=== PATIENT | female | born 1975 | race Caucasian/White ===

== ENCOUNTER 2017-11-27 16:35 | Inpatient (IN) | payer BC, OTHER ==
[2017-11-27] MEDS ORDERED: NS 0.9% 1000 ML* 1,000 ML IV ONE (17:24)
[2017-11-27 17:33] LABS: ABS Basophils 0.1 10^3/ul (0-0.2); ABS Eosinophils 0.1 10^3/ul (0-0.6); ABS Lymphocytes 2.1 10^3/ul (1.0-4.8); ABS Monocytes 0.9 10^3/ul (0-0.8); ABS Neutrophils 10.9 10^3/ul (1.5-7.7); ABS Nucleated RBC 0 10^3/ul; Eosinophil % 0.5 % (0-6); Hematocrit 30 % (35-47); Hemoglobin 9.8 g/dl (12.0-16.0); Lymphocyte % 15.2 % (25-47); Mean Corpuscular HGB Conc 33 g/dl (31-36); Mean Corpuscular Hemoglobin 26 pg (27-31); Mean Corpuscular Volume 78 fL (80-97); Mean Platelet Volume 8 um3 (7.4-10.4); Nucleated Red Blood Cells % 0.1; Platelet Count 233 10^3/ul (150-450); Red Blood Count 3.85 10^6/ul (4.0-5.4); Red Cell Distribution Width 15 % (10.5-15); White Blood Count 14.1 10^3/ul (3.5-10.8)
[2017-11-27] MEDS ORDERED: Iohexol 350* (CONTRAST) 500 ML MDV IV ONE (18:39)
--- NOTE | 2017-11-27 18:44 | RAD ---
Indication: Dyspnea. 2 views of the chest including dual energy PA views demonstrates no mediastinal shift. Heart is of normal size and configuration. There is poor inspiration noted. No alveolar consolidation is noted. IMPRESSION: No alveolar consolidation is noted. Mild vascular congestion is noted.
--- NOTE | 2017-11-27 20:08 | RAD ---
Indication: Syncope and dyspnea. Contrast: Administered 88.0 ml of OMNIPAQUE 350 mg/ml CTA of the chest was performed after IV contrast administration. Coronal and sagittal reconstructed images were obtained. The pulmonary arterial tree is well opacified. There are no filling defects present to suggest pulmonary embolus. The study is limited due to body habitus. Areas of airspace disease is noted in both lung bases consistent with pneumonia. There is no mediastinal or hilar adenopathy noted. No pleural fluid is identified. The visualized abdominal organs are otherwise unremarkable. There is nonenhancement of the upper pole left kidney. I cannot totally exclude pyelonephritis of the left kidney. IMPRESSION: No pulmonary embolus is noted. Patchy areas of airspace disease in the lung bases bilaterally consistent with bilateral pneumonia. Ill-defined enhancement in the upper pole of left kidney for which pyelonephritis is not excluded.
--- NOTE | 2017-11-27 21:07 | HP ---
H&P (Free Text) History and Physical: PCP: Jean Conroy NP Date/Time: 11/27/2017 4533 CC: SOB HPI: Mrs Wilson is a 42YO super morbidly obese female who was discharged from [facility] 11/27/2017 after a stay for sepsis 2nd an obstructing L ureteral stone s/p stent placement 11/26/2017. A few hours after arriving home she developed progressive SOB and wheeze which is new for her. She reports 'chest soreness' worse with deep inspiration along with a dry cough, but denies overt chest pain, palpitations, LE swelling, N/V, diarrhea, F/C, dysuria, abdominal pain, or other issues. PMedHx urolithiasis TAHMINA on CPAP GERD depression super morbid obesity Ambulatory Orders BuPROPion XL* [Bupropion XL*] 300 mg PO DAILY 11/27/17 Citalopram TAB* [CeleXA TAB*] 20 mg PO DAILY 11/27/17 Norgestimate-Ethinyl Estradiol [Sprintec 28 Day Tablet] 1 tab PO DAILY 11/27/17 Omeprazole CAP* [Prilosec CAP* 20 MG] 20 mg PO DAILY 11/27/17 metFORMIN* [Glucophage 500 MG TAB *] 500 mg PO BID 11/27/17 Allergies Cipro Opthalmic Drops Allergy (Unknown, Uncoded 01/28/16 07:27) Unknown Reaction Details PSurgHx stent L kidney 11/26/2017 lithotripsy lasik eye surgery SocHx: denies tobacco, alcohol, & recreational drugs; lives with her ; works as a commercial real estate manager; full code status FamHx: M: in her 60s w/ COPD & HTN; Father: estranged, "lung issues"; Sister: healthy; Brother: healthy ROS: as above, otherwise reviewed and all were negative vitals: Vital Signs Temp 36.4 C 11/27/17 16:36 Pulse 110 11/27/17 21:00 Resp 31 11/27/17 19:27 BP 119/92 11/27/17 20:17 Pulse Ox 92 11/27/17 21:00 Intake & Output 11/26/17 11/27/17 11/27/17 23:59 11:59 23:59 Weight 167.829 kg Constitutional: NAD, normally developed, super morbidly obese white female HEENM: atraumatic; sclera/conjunctiva: ancteric/clear; hearing: clinically intact; oropharynx: clear, mucosa moist Neck: soft tissue: non-tender; thyroid: normal Pulmonary: diminished bilaterally with scant mid- to end-expiratory wheeze, fair to poor aeration, no accessory muscle use CV: RR/RR, normal S1S2, no carotid bruit, no jugular venous distention, 2+ B DP/ PT, no edema Abdominal: soft, non-distended, non-tender, no rebound/guarding/rigidity, normoactive bowel sounds, no hepatosplenomegaly or masses, no costovertebral angle tenderness Musculoskeletal: general: grossly intact, non-tender to palpation Integumental: normal appearance and texture of exposed skin Psychiatric orientation: AA&O to PPS affect: calm mood: cooperative eye contact: fair to good content: reliable responses: timely insight: good Testing: Lab Results 11/27/17 11/27/17 11/27/17 Range/Units 17:22 17:22 17:22 WBC 14.1 H (3.5-10.8) 10^3/ul RBC 3.85 L (4.0-5.4) 10^6/ul Hgb 9.8 L (12.0-16.0) g/dl Hct 30 L (35-47) % MCV 78 L (80-97) fL MCH 26 L (27-31) pg MCHC 33 (31-36) g/dl RDW 15 (10.5-15) % Plt Count 233 (150-450) 10^3/ul MPV 8 (7.4-10.4) um3 Neut % (Auto) 77.3 (38-83) % Lymph % (Auto) 15.2 L (25-47) % Rains % (Auto) 6.3 (0-7) % Eos % (Auto) 0.5 (0-6) % Baso % (Auto) 0.7 (0-2) % Absolute Neuts (auto) 10.9 H (1.5-7.7) 10^3/ul Absolute Lymphs (auto) 2.1 (1.0-4.8) 10^3/ul Absolute Monos (auto) 0.9 H (0-0.8) 10^3/ul Absolute Eos (auto) 0.1 (0-0.6) 10^3/ul Absolute Basos (auto) 0.1 (0-0.2) 10^3/ul Absolute Nucleated RBC 0 10^3/ul Nucleated RBC % 0.1 D-Dimer, Quantitative 529 H (Less Than 230) ng/mL Sodium 135 (133-145) mmol/L Potassium 3.7 (3.5-5.0) mmol/L Chloride 104 (101-111) mmol/L Carbon Dioxide 25 (22-32) mmol/L Anion Gap 6 (2-11) mmol/L BUN 6 (6-24) mg/dL Creatinine 0.65 (0.51-0.95) mg/dL Est GFR ( Amer) 129.8 (>60) Est GFR (Non-Af Amer) 101.0 (>60) BUN/Creatinine Ratio 9.2 (8-20) Glucose 117 H (70-100) mg/dL Calcium 8.5 L (8.6-10.3) mg/dL Total Bilirubin 0.30 (0.2-1.0) mg/dL AST 9 L (13-39) U/L ALT 10 (7-52) U/L Alkaline Phosphatase 59 (34-104) U/L Troponin I 0.01 (<0.04) ng/mL Total Protein 6.5 (6.4-8.9) g/dL Albumin 3.2 (3.2-5.2) g/dL Globulin 3.3 (2-4) g/dL Albumin/Globulin Ratio 1.0 (1-3) ECG, personally reviewed: sinus tachycardia rate 103, no ischemia CXR, personally reviewed: IMPRESSION: No alveolar consolidation is noted. Mild vascular congestion is noted. CTA chest, personally reviewed: IMPRESSION: No pulmonary embolus is noted. Patchy areas of airspace disease in the lung bases bilaterally consistent with bilateral pneumonia. Ill-defined enhancement in the upper pole of left kidney for which pyelonephritis is not excluded. US venous BLE: IMPRESSION: NO EVIDENCE OF DEEP VENOUS THROMBOSIS OF EITHER LOWER EXTREMITY IS PRESENT. Impression: 42F presenting with SOB found to have BLL pneumonia on CTA; recent L renal stenting for sepsis 2nd obstructing stone 11/26/2017 at [facility] DIAGNOSIS & PLAN Primary sepsis (HR>90, RR>22, WBC>12) 2nd BLL pneumonia : IV ABX : IVFs : blood, sputum, & urine CXs : supplemental oxygen : supportive care SOB w/ wheeze : as above : albuterol nebs Secondary urolithiasis : L renal stenting for sepsis 2nd obstructing stone 11/26/2017 at [facility] : records requested TAHMINA : continue home CPAP GERD : continue omeprazole depression : continue bupropion & citalopram super morbid obesity : suspect obesity hypoventilation syndrome : continue metformin Admission Rational: inpatient for sepsis requiring IV ABX & IVFs DVTp: SCDS Code Status: full HCP:
--- NOTE | 2017-11-27 21:22 | RAD ---
Indication: Bilateral leg edema. Duplex Doppler sonography of the deep venous system of both lower extremities was performed. Bilaterally the common femoral veins, proximal greater saphenous veins, proximal deep femoral veins, femoral veins, popliteal veins, posterior tibial veins and peroneal veins appear patent and compressible. IMPRESSION: NO EVIDENCE OF DEEP VENOUS THROMBOSIS OF EITHER LOWER EXTREMITY IS PRESENT.
--- NOTE | 2017-11-27 22:15 | ED ---
Mariza Ace Gabriel, scribed for Ankur Dixon MD on 11/27/17 at 1705 . Shortness of Breath - HPI Summary HPI Summary: This patient is a 42 year old F presenting to [facility] with a chief complaint of SOB since earlier today. The patient rates the pain 5/10 in severity. Symptoms aggravated by rest slightly. Patient reports CP with breathing,. Patient denies hematuria and LE pain. Pt was discharged from [place] today after being admitted for 2 days. There she was diagnosed with kidney stones and sepsis, a kidney stent was placed. No hx of DVT. - History of Current Complaint Chief Complaint: EDShortnessOfBreath Hx Obtained From: Patient Onset/Duration: Still Present Timing: Constant Current Severity: Mild Dyspnea At: Rest Associated Signs & Symptoms: Chest Pain Unrelated to Cough Related History: Obesity - Allergy/Home Medications Allergies/Adverse Reactions: Allergies Allergy/AdvReac Type Severity Reaction Status Date / Time Cipro Opthalmic Drops Allergy Unknown Unknown Uncoded 01/28/16 07:27 Reaction Details Home Medications: Home Medications BuPROPion XL* [Bupropion XL*] 300 mg PO DAILY 11/27/17 [History Confirmed ] Citalopram TAB* [CeleXA TAB*] 20 mg PO DAILY 11/27/17 [History Confirmed ] Norgestimate-Ethinyl Estradiol [Sprintec 28 Day Tablet] 1 tab PO DAILY 11/27/17 [History Confirmed 11/27/17] Omeprazole CAP* [Prilosec CAP* 20 MG] 20 mg PO DAILY 11/27/17 [History Confirmed 11/27/17] metFORMIN* [Glucophage 500 MG TAB *] 500 mg PO BID 11/27/17 [History Confirmed 11/27/17] PMH/Surg Hx/FS Hx/Imm Hx Endocrine/Hematology History: Reports: Hx Diabetes Respiratory History: Reports: Hx Sleep Apnea GI History: Reports: Hx Gastroesophageal Reflux Disease History: Reports: Hx Kidney Stones Psychiatric History: Reports: Hx Anxiety, Hx Depression - Surgical History Surgery Procedure, Year, and Place: Lithotripsy; Lasik Infectious Disease History: No Infectious Disease History: Denies: Traveled Outside the [place] in Last 30 Days - Family History Known Family History: Positive: Diabetes, Other - cancer, thyroid issues, blood clots - Social History Alcohol Use: Occasionally Substance Use Type: Reports: None Smoking Status (MU): Never Smoked Tobacco Review of Systems Positive: Chest Pain - with breathing Positive: Shortness Of Breath, Cough All Other Systems Reviewed And Are Negative: Yes Physical Exam - Summary Physical Exam Summary: Appearance: pt is morbidly obese and is in acute respiratory distress Skin: Warm, Dry, No rash, pallor Eyes: Normal, PERRL, EOMI, sclera are pallor ENT: Normal Neck: Supple, nontender Respiratory: Clear to auscultation Cardiovascular: S1, S2, no murmur, no rub, no gallop Abdomen: Soft, nontender, no organomegaly Bowel sounds: Present Musculoskeletal: Normal, Strength/ROM Intact, no edema, pulses symmetrical Neurological: Normal, A&Ox3, cranial nerves II-XII WNL, follows commands, gait not tested, sensation intact to pin and light touch Psychiatric: affect normal, behavior appropriate, dressed appropriately, judgment intact Triage Information Reviewed: Yes Vital Signs On Initial Exam: Initial Vitals Temp Pulse Resp BP Pulse Ox 97.6 F 110 24 166/92 99 11/27/17 16:36 11/27/17 16:36 11/27/17 16:36 11/27/17 16:36 11/27/17 16:36 Vital Signs Reviewed: Yes Diagnostics - Vital Signs Vital Signs Temp Pulse Resp BP Pulse Ox 11/27/17 16:36 97.6 F 110 24 166/92 99 - Laboratory Result Diagrams: 11/27/17 17:22 11/27/17 17:22 Lab Statement: Any lab studies that have been ordered have been reviewed, and results considered in the medical decision making process. - Radiology CXR Radiology Interpretation Completed By: Radiologist - No alveolar consolidation is noted. Mild vascular congestion is noted. ED physician has reviewed this radiology report and agrees. - CT CTA head/thorax CT Interpretation Completed By: Radiologist - No pulmonary embolus is noted. Patchy areas of airspace disease in the lung bases bilaterally consistent with bilateral pneumonia. Ill-defined enhancement in the upper pole of left kidney for which pyelonephritis is not excluded. ED physician has reviewed this radiology report and agrees. - EKG 17:25 Cardiac Rate: Tachycardia EKG Rhythm: Sinus Tachycardia - at 103 bpm Ectopy: None - Additional Comments Diagnostic Additional Comments: Venous Doppler study reveals, NO EVIDENCE OF DEEP VENOUS THROMBOSIS OF EITHER LOWER EXTREMITY IS PRESENT. ED physician has reviewed this report. Course/Dx - Course Assessment/Plan: This patient is a 42 year old F presenting to [facility] with a chief complaint of SOB since earlier today. The patient rates the pain 5/10 in severity. Symptoms aggravated by rest slightly. Patient reports CP with breathing,. Patient denies hematuria and LE pain. Pt was discharged from [place] today after being admitted for 2 days. There she was diagnosed with kidney stones and sepsis, a kidney stent was placed. No hx of DVT. . An EKG reveals sinus tachycardia. CTA chest/ thorax reveals, per radiologist, No pulmonary embolus is noted. Patchy areas of airspace disease in the lung. bases bilaterally consistent with bilateral pneumonia. Ill-defined enhancement in the upper pole of left kidney for which pyelonephritis is not. excluded. CXR reveals, per radiologist, No alveolar consolidation is noted. Mild vascular congestion is noted. Venous Doppler study reveals, NO EVIDENCE OF DEEP VENOUS THROMBOSIS OF EITHER LOWER EXTREMITY IS PRESENT. Test results with no significant abnormalities except for a d dimer of 529 and a WBC of 14.1. In the ED course the patient was given IV fluids. Dx bilateral, PNA, sleep apnea, and urosepsis. We discussed patient care with Dr. Bergman and they accepted the patient for admission. Patient will be admitted. The patient is agreeable with this plan. - Diagnoses Provider Diagnoses: Bilateral pneumonia, Sleep apnea, urosepsis - Physician Notifications Discussed Care of Patient With: Laron Bergman Time Discussed With Above Provider: 20:59 Instructed by Provider To: Admit As Inpatient Discharge - Discharge Plan Condition: Fair Disposition: ADMITTED TO [facility] Referrals: Sommer Conroy NP [Primary Care Provider] - The documentation as recorded by the Mariza dow Gabriel accurately reflects the service I personally performed and the decisions made by me, Ankur Dixon MD.
[2017-11-27] MEDS ORDERED: Ondansetron INJ* 2 MG/ML VIAL IV PRN (23:01)
[2017-11-27] MEDS ORDERED: CMCS:Melatonin (NF) 3 MG TAB PO PRN (23:01)
[2017-11-27] MEDS ORDERED: Acetaminophen TAB* 325 MG PO PRN (23:01)
[2017-11-28] MEDS ORDERED: methylPREDNISolone 125 MG* 2 ML VIAL IV ONE (00:01)
[2017-11-28] MEDS ORDERED: ZOSYN 3.375 GM x ONE DOSE over 30 miuntes IVPB ×2 (00:30)
[2017-11-28] MEDS: NS 0.9% 1000 ML* 1,000 ML IV SCH ×4 (01:04→12:07)
[2017-11-28] MEDS: Albuterol 2.5 MG/3 ML NEB.SOL* (0.083%) INH SCH ×4 (01:22→19:50)
[2017-11-28] MEDS: Albuterol 2.5 MG/3 ML NEB.SOL* (0.083%) INH PRN (03:50)
[2017-11-28] MEDS ORDERED: Piperacillin/Tazobac ADVAN(*) 3.375 GM in NS 0.9% 100 ML* 100 ML IVPB SCH (05:00)
[2017-11-28] MEDS: Piperacillin/Tazobactam 13.5 GM IV 24 hour continuous infusion IVPB SCH ×2 (05:05)
[2017-11-28 06:18] LABS: ABS Basophils 0 10^3/ul (0-0.2); ABS Eosinophils 0 10^3/ul (0-0.6); ABS Monocytes 0.3 10^3/ul (0-0.8); ABS Neutrophils 10.9 10^3/ul (1.5-7.7); ABS Nucleated RBC 0 10^3/ul; Hematocrit 31 % (35-47); Hemoglobin 10.1 g/dl (12.0-16.0); Mean Corpuscular HGB Conc 32 g/dl (31-36); Mean Corpuscular Hemoglobin 25 pg (27-31); Mean Corpuscular Volume 78 fL (80-97); Mean Platelet Volume 8 um3 (7.4-10.4); Platelet Count 231 10^3/ul (150-450); Red Cell Distribution Width 15 % (10.5-15); White Blood Count 12.2 10^3/ul (3.5-10.8)
[2017-11-28 06:19] LABS: Eosinophil % 0.1 % (0-6); Lymphocyte % 7.9 % (25-47); Nucleated Red Blood Cells % 0
[2017-11-28] MEDS: Citalopram TAB* 20 MG PO SCH (07:23)
[2017-11-28] MEDS: BuPROPion XL* 300 MG TAB.XL PO SCH (07:23)
[2017-11-28] MEDS: Omeprazole CAP* 20 MG PO SCH (07:23)
[2017-11-28] MEDS ORDERED: methylPREDNISolone SOD 40 MG* 1 ML VIAL IV SCH (08:00)
[2017-11-28] MEDS ORDERED: metFORMIN* 500 MG TAB PO SCH (09:00)
--- NOTE | 2017-11-28 12:33 | PN ---
Subjective Date of Service: 11/28/17 Interval History: patient is feeling better today with a little more energy. She has an occasional cough with sputum production. Continues to have SOB with exertion and feels that she has little reserve. She denies any fever or chills. Objective Active Medications: Acetaminophen (Tylenol Tab*) 650 mg PO Q6H PRN PRN Reason: FEVER/PAIN Albuterol (Ventolin 2.5 Mg/3 Ml Neb.Deandra*) 2.5 mg INH Q2H PRN PRN Reason: SOB/WHEEZING Last Admin: 11/28/17 03:50 Dose: 2.5 mg Albuterol (Ventolin 2.5 Mg/3 Ml Neb.Deandra*) 2.5 mg INH [id number] AWAKE [facility] Last Admin: 11/28/17 08:09 Dose: 2.5 mg Bupropion HCl (Bupropion Xl*) 300 mg PO DAILY [facility] Last Admin: 11/28/17 07:23 Dose: 300 mg Citalopram Hydrobromide (Celexa Tab*) 20 mg PO DAILY [facility] Last Admin: 11/28/17 07:23 Dose: 20 mg Sodium Chloride (Ns 0.9% 1000 Ml*) 1,000 mls @ 0 mls/hr IV WIDE OPEN [facility] PRN Reason: Wide Open Stop: 11/28/17 23:46 Last Admin: 11/28/17 02:09 Dose: 1,000 mls/hr Sodium Chloride (Ns 0.9% 1000 Ml*) 1,000 mls @ 125 mls/hr IV PER RATE [facility] Last Admin: 11/28/17 12:07 Dose: 125 mls/hr Piperacillin Sod/Tazobactam (Sod 13.5 gm/ Sodium Chloride) 500 mls @ 20.833 mls /hr IVPB Q24H [facility] Last Admin: 11/28/17 05:05 Dose: 20.833 mls/hr Melatonin (Melatonin (Nf)) 3 mg PO BEDTIME PRN; Protocol PRN Reason: Sleep Metformin HCl (Glucophage*) 500 mg PO BID [facility] Last Admin: 11/28/17 07:23 Dose: 500 mg Methylprednisolone Sodium Succinate (Solu-Medrol 40 Mg) 40 mg IV Q8H [facility] Last Admin: 11/28/17 07:23 Dose: 40 mg Omeprazole (Prilosec Cap*) 20 mg PO DAILY@0730 [facility] Last Admin: 11/28/17 07:23 Dose: 20 mg Ondansetron HCl (Zofran Inj*) 4 mg IV Q6H PRN PRN Reason: NAUSEA Vital Signs - 8 hr 11/28/17 11/28/17 11/28/17 07:17 07:30 07:33 Temperature Pulse Rate 72 86 Respiratory 16 Rate Blood Pressure 142/70 (mmHg) O2 Sat by Pulse Oximetry 11/28/17 11/28/17 11/28/17 07:35 08:17 10:56 Temperature 97.9 F 97.8 F Pulse Rate 97 102 104 Respiratory 20 18 16 Rate Blood Pressure 153/67 133/95 (mmHg) O2 Sat by Pulse 97 96 97 Oximetry Oxygen Devices in Use Now: Nasal Cannula Result Diagrams: 11/28/17 13:48 11/28/17 13:48 Assess/Plan/Problems-Billing Assessment: 42 yo female with PMH of super morbid obesity, TAHMINA on CPAPA, depression, GERD who was discharged from [place] on 11/27 after a stay for sepsis 2nd to an obstructing ureteral stone s/p stent placement 11/26. Several hours after being discharged she developed progressive SOB, wheezing and cough. Admitted for sepsis 2nd to BLL pneumonia. - Patient Problems (1) Sepsis Comment: Screens positive for sepsis - elevated WBC, HR >100, lactic 2.2 Suspect secondary to b/l pneumonia. Continue IVFs. Afebrile. Does not appear to be toxic. Influenza negative (2) Pneumonia Comment: - Bilateral pneumonia on CTA- concern for HCAP with recent hospitalization. On zosyn, add Vano and obtain sputum cx (have asked nurse to please obtain this today) - awaiting blood - titrate IV solumedrol 40 mg Q12 - continue nebs - prn oxygenation to maintain sat >94% - Encourage ambulation (3) TAHMINA (obstructive sleep apnea) Comment: - continue cpap (4) Depression Comment: - stable. Continue celexa and bupropion (5) Diabetes Comment: - Hold Metformin (had does this am) recent CTA - Continue FSBG with lispro SS (6) Full code status (7) DVT prophylaxis Comment: ambulation. low risk Status and Disposition: OBV flip to inpatient for continued IV abx.
[2017-11-28] MEDS ORDERED: Dextrose 50% Syringe 50 ML* 25 GM/50 ML SYRINGE IV PUSH PRN (13:15)
[2017-11-28 13:55] LABS: ABS Basophils 0 10^3/ul (0-0.2); ABS Eosinophils 0 10^3/ul (0-0.6); ABS Lymphocytes 1.3 10^3/ul (1.0-4.8); ABS Monocytes 0.2 10^3/ul (0-0.8); ABS Neutrophils 10.7 10^3/ul (1.5-7.7); ABS Nucleated RBC 0 10^3/ul; Eosinophil % 0 % (0-6); Hematocrit 34 % (35-47); Hemoglobin 10.8 g/dl (12.0-16.0); Lymphocyte % 10.5 % (25-47); Mean Corpuscular HGB Conc 32 g/dl (31-36); Mean Corpuscular Hemoglobin 25 pg (27-31); Mean Corpuscular Volume 79 fL (80-97); Mean Platelet Volume 8 um3 (7.4-10.4); Nucleated Red Blood Cells % 0; Platelet Count 282 10^3/ul (150-450); Red Blood Count 4.29 10^6/ul (4.0-5.4); Red Cell Distribution Width 15 % (10.5-15); White Blood Count 12.3 10^3/ul (3.5-10.8)
[2017-11-28 14:16] LABS: EGFR Non-African American 97.5 (>60)
[2017-11-28] MEDS ORDERED: NS 0.9% 1000 ML* 1,000 ML IV SCH ×2 (14:24→15:00)
[2017-11-28] MEDS ORDERED: Vancomycin(*) 2,000 MG in NS 0.9% 500 ML* 500 ML IVPB ONE (16:30)
[2017-11-28] MEDS: Insulin LISPRO* 1 UNITS UNIT SUBCUT SCH ×2 (16:59→20:46)
[2017-11-28] MEDS: methylPREDNISolone SOD 40 MG* 1 ML VIAL IV SCH (19:57)
[2017-11-28] MEDS ORDERED: Vancomycin per Pharmacy* NOTE FOLLOW UP PRN (21:08)
[2017-11-29] MEDS: Albuterol 2.5 MG/3 ML NEB.SOL* (0.083%) INH SCH ×2 (01:19→07:43)
[2017-11-29] MEDS ORDERED: Vancomycin 1500 MG IV IVPB SCH ×2 (05:00)
[2017-11-29 05:40] LABS: ABS Basophils 0 10^3/ul (0-0.2); ABS Eosinophils 0 10^3/ul (0-0.6); ABS Lymphocytes 1.8 10^3/ul (1.0-4.8); ABS Monocytes 0.6 10^3/ul (0-0.8); ABS Neutrophils 11.9 10^3/ul (1.5-7.7); ABS Nucleated RBC 0 10^3/ul; Eosinophil % 0 % (0-6); Hematocrit 31 % (35-47); Hemoglobin 10.1 g/dl (12.0-16.0); Lymphocyte % 12.6 % (25-47); Mean Corpuscular HGB Conc 32 g/dl (31-36); Mean Corpuscular Hemoglobin 25 pg (27-31); Mean Corpuscular Volume 79 fL (80-97); Mean Platelet Volume 8 um3 (7.4-10.4); Nucleated Red Blood Cells % 0; Platelet Count 309 10^3/ul (150-450); Red Cell Distribution Width 15 % (10.5-15); White Blood Count 14.4 10^3/ul (3.5-10.8)
[2017-11-29 05:59] LABS: EGFR Non-African American 104.7 (>60)
[2017-11-29] MEDS: Piperacillin/Tazobactam 13.5 GM IV 24 hour continuous infusion IVPB SCH ×2 (06:51)
[2017-11-29] MEDS: Insulin LISPRO* 1 UNITS UNIT SUBCUT SCH ×4 (08:11→19:55)
[2017-11-29] MEDS: methylPREDNISolone SOD 40 MG* 1 ML VIAL IV SCH (08:13)
[2017-11-29] MEDS: Omeprazole CAP* 20 MG PO SCH (08:13)
[2017-11-29] MEDS: Citalopram TAB* 20 MG PO SCH (08:13)
[2017-11-29] MEDS: BuPROPion XL* 300 MG TAB.XL PO SCH (09:03)
--- NOTE | 2017-11-29 12:03 | PN ---
Subjective Date of Service: 11/29/17 Interval History: Still desat'ing with ambulation. Afebrile. Tachycardia and leukocytosis persist. occasional left flank twinges. no records from [facility] yet. urinating a lot. Fluid positive 3.4L yesterday. Legs a bit puffy. MRSA nares negative. Urine Ags negative. stopping Vancomycin. Objective Active Medications: Acetaminophen (Tylenol Tab*) 650 mg PO Q6H PRN PRN Reason: FEVER/PAIN Albuterol (Ventolin 2.5 Mg/3 Ml Neb.Deandra*) 2.5 mg INH Q2H PRN PRN Reason: SOB/WHEEZING Last Admin: 11/28/17 03:50 Dose: 2.5 mg Albuterol (Ventolin 2.5 Mg/3 Ml Neb.Deandra*) 2.5 mg INH [id number] AWAKE [facility] Last Admin: 11/29/17 07:43 Dose: 2.5 mg Bupropion HCl (Bupropion Xl*) 300 mg PO DAILY [facility] Last Admin: 11/29/17 09:03 Dose: 300 mg Citalopram Hydrobromide (Celexa Tab*) 20 mg PO DAILY [facility] Last Admin: 11/29/17 08:13 Dose: 20 mg Dextrose (D50w Syringe 50 Ml*) 12.5 gm IV PUSH .FOR FS < 60 - SS PRN PRN Reason: FS < 60 Piperacillin Sod/Tazobactam (Sod 13.5 gm/ Sodium Chloride) 500 mls @ 20.833 mls /hr IVPB Q24H [facility] Last Admin: 11/29/17 06:51 Dose: 20.833 mls/hr Insulin Human Lispro (Humalog*) 0 units SUBCUT ACHS [facility] PRN Reason: Protocol Last Admin: 11/29/17 08:11 Dose: 3 units Melatonin (Melatonin (Nf)) 3 mg PO BEDTIME PRN; Protocol PRN Reason: Sleep Omeprazole (Prilosec Cap*) 20 mg PO DAILY@0730 [facility] Last Admin: 11/29/17 08:13 Dose: 20 mg Ondansetron HCl (Zofran Inj*) 4 mg IV Q6H PRN PRN Reason: NAUSEA Pharmacy Consult (Vancomycin Per Pharmacy*) 1 note FOLLOW UP . PRN PRN Reason: PER PROTOCOL Vital Signs - 8 hr 11/29/17 11/29/17 11/29/17 07:17 07:45 08:37 Temperature 97.9 F Pulse Rate 94 94 Respiratory 18 16 16 Rate Blood Pressure 146/77 (mmHg) O2 Sat by Pulse 95 93 Oximetry 11/29/17 11:21 Temperature 98.5 F Pulse Rate 105 Respiratory 20 Rate Blood Pressure 161/88 (mmHg) O2 Sat by Pulse 96 Oximetry Oxygen Devices in Use Now: None, Nasal Cannula Appearance: NAD, super morbid obesity Eyes: No Scleral Icterus, PERRLA Ears/Nose/Mouth/Throat: NL Teeth, Lips, Gums, Mucous Membranes Moist Neck: NL Appearance and Movements; NL JVP Respiratory: Symmetrical Chest Expansion and Respiratory Effort, Clear to Auscultation Cardiovascular: NL Sounds; No Murmurs; No JVD, RRR Abdominal: - - soft, super moribd obese. nontender Extremities: - - 1+ edema Skin: No Rash or Ulcers, No Nodules or Sclerosis Neurological: Alert and Oriented x 3, NL Sensation, NL Muscle Strength and Tone Nutrition: Taking PO's Result Diagrams: 11/29/17 05:26 11/29/17 05:26 Additional Lab and Data: Laboratory Results - last 24 hr 11/28/17 11/28/17 11/28/17 12:59 13:48 13:48 WBC 12.3 H RBC 4.29 Hgb 10.8 L Hct 34 L MCV 79 L MCH 25 L MCHC 32 RDW 15 Plt Count 282 MPV 8 Neut % (Auto) 87.4 H Lymph % (Auto) 10.5 L Kane % (Auto) 1.9 Eos % (Auto) 0 Baso % (Auto) 0.2 Absolute Neuts (auto) 10.7 H Absolute Lymphs (auto) 1.3 Absolute Monos (auto) 0.2 Absolute Eos (auto) 0 Absolute Basos (auto) 0 Absolute Nucleated RBC 0 Nucleated RBC % 0 Sodium Potassium Chloride Carbon Dioxide Anion Gap BUN Creatinine Est GFR ( Amer) Est GFR (Non-Af Amer) BUN/Creatinine Ratio Glucose POC Glucose (mg/dL) Lactic Acid 2.2 H* Calcium Influenza A (Rapid) Negative Influenza B (Rapid) Negative 11/28/17 11/28/17 11/28/17 13:48 16:21 20:40 WBC RBC Hgb Hct MCV MCH MCHC RDW Plt Count MPV Neut % (Auto) Lymph % (Auto) Kane % (Auto) Eos % (Auto) Baso % (Auto) Absolute Neuts (auto) Absolute Lymphs (auto) Absolute Monos (auto) Absolute Eos (auto) Absolute Basos (auto) Absolute Nucleated RBC Nucleated RBC % Sodium 136 Potassium 3.7 Chloride 107 Carbon Dioxide 19 L Anion Gap 10 BUN 7 Creatinine 0.67 Est GFR ( Amer) 125.4 Est GFR (Non-Af Amer) 97.5 BUN/Creatinine Ratio 10.4 Glucose 244 H POC Glucose (mg/dL) 231 H 168 H Lactic Acid Calcium 8.7 Influenza A (Rapid) Influenza B (Rapid) 11/29/17 11/29/17 11/29/17 05:26 05:26 05:26 WBC 14.4 H RBC 4.00 Hgb 10.1 L Hct 31 L MCV 79 L MCH 25 L MCHC 32 RDW 15 Plt Count 309 MPV 8 Neut % (Auto) 82.9 Lymph % (Auto) 12.6 L Kane % (Auto) 4.2 Eos % (Auto) 0 Baso % (Auto) 0.3 Absolute Neuts (auto) 11.9 H Absolute Lymphs (auto) 1.8 Absolute Monos (auto) 0.6 Absolute Eos (auto) 0 Absolute Basos (auto) 0 Absolute Nucleated RBC 0 Nucleated RBC % 0 Sodium 137 Potassium 3.8 Chloride 107 Carbon Dioxide 21 L Anion Gap 9 BUN 8 Creatinine 0.63 Est GFR ( Amer) 134.6 Est GFR (Non-Af Amer) 104.7 BUN/Creatinine Ratio 12.7 Glucose 192 H POC Glucose (mg/dL) Lactic Acid 1.9 Calcium 8.7 Influenza A (Rapid) Influenza B (Rapid) 11/29/17 07:57 WBC RBC Hgb Hct MCV MCH MCHC RDW Plt Count MPV Neut % (Auto) Lymph % (Auto) Kane % (Auto) Eos % (Auto) Baso % (Auto) Absolute Neuts (auto) Absolute Lymphs (auto) Absolute Monos (auto) Absolute Eos (auto) Absolute Basos (auto) Absolute Nucleated RBC Nucleated RBC % Sodium Potassium Chloride Carbon Dioxide Anion Gap BUN Creatinine Est GFR ( Amer) Est GFR (Non-Af Amer) BUN/Creatinine Ratio Glucose POC Glucose (mg/dL) 183 H Lactic Acid Calcium Influenza A (Rapid) Influenza B (Rapid) Microbiology and Other Data: Microbiology 11/29/17 08:53 Urine Legionella Urinary Antigen - Final Negative Legionella 11/29/17 08:53 Urine Streptococcus pneumoniae Ag Screen - Final Negative S. pneumo Antigen 11/29/17 08:46 Nasal Nasal Screen MRSA (PCR)(JEANNINE) - Final Mrsa Not Detected 11/28/17 00:45 Urine Urine Culture - Final No Growth (<1,000 CFU/mL) 11/27/17 19:20 Sputum Gram Stain - Final 11/28/17 01:39 Blood Venous Aerobic Blood Culture - Preliminary No Growth Day 1 11/28/17 01:39 Blood Venous Anaerobic Blood Culture - Preliminary No Growth Day 1 11/28/17 12:45 Nasopharyngeal Influenza Types A,B Antigen (JEANNINE) - Final Specimen received for Influenza A/B Molecular testing Assess/Plan/Problems-Billing Assessment: 42 yo female PMH of super morbid obesity, TAHMINA on CPAP(15), depression, GERD who was discharged [facility] on 11/27 after a stay for sepsis 2nd to an obstructing ureteral stone s/p stent placement 11/26. Walking from hospital she developed progressive SOB, wheezing, cough, generalized chest/trunk pains. Admitted for sepsis 2nd to BLL pneumonia. On vanc(now stopping)/zosyn. hypoxic respiratory failure and leukocytosis persists. - Patient Problems (1) Sepsis Current Visit: Yes Status: Acute Comment: Screens positive for sepsis - elevated WBC, HR >100, lactic 2.2 (now resolved) Suspect secondary to b/l pneumonia. stop IVF given edema. Adding BNP. Afebrile. Does not appear to be toxic but hypoxic respiratory failure, leukocytosis and tachycardia persist despite broad spectrum anitbiotics. Influenza negative (2) Full code status Current Visit: Yes Status: Acute Code(s): Z78.9 - OTHER SPECIFIED HEALTH STATUS SNOMED Code(s): 959383181 (3) Acute respiratory failure with hypoxia Current Visit: Yes Status: Acute Code(s): J96.01 - ACUTE RESPIRATORY FAILURE WITH HYPOXIA SNOMED Code(s): 70824497 Comment: 2/2 pneumonia. may be getting volume overloaded as well with the IVF for sepsis protocol. BNP added. (4) Pneumonia Current Visit: Yes Status: Acute Code(s): J18.9 - PNEUMONIA, UNSPECIFIED ORGANISM SNOMED Code(s): 436427967 Comment: - Bilateral pneumonia on CTA- concern for HCAP with recent hospitalization. continue zosyn. stop Vancomycin as MRSA nares negtative - sputum cx just saliva - blood cx ngtd - stop solumedrol 40 mg Q12 - continue nebs prn - wean oxygen as tolerated. sat goal >94% - Encourage ambulation - Strep and legionella Urine Antigens negative. (5) Depression Current Visit: Yes Status: Chronic Code(s): F32.9 - MAJOR DEPRESSIVE DISORDER, SINGLE EPISODE, UNSPECIFIED SNOMED Code(s): 53856160 Comment: - stable. Continue celexa and bupropion (6) Diabetes Current Visit: Yes Status: Chronic Code(s): E11.9 - TYPE 2 DIABETES MELLITUS WITHOUT COMPLICATIONS SNOMED Code(s): 47389179 Comment: - Hold Metformin - Continue FSBG with lispro SS (7) TAHMINA (obstructive sleep apnea) Current Visit: Yes Status: Chronic Code(s): G47.33 - OBSTRUCTIVE SLEEP APNEA (ADULT) (PEDIATRIC) SNOMED Code(s): 76354121 Comment: - continue cpap, 15mm Hg (8) History of urethral stent Current Visit: Yes Status: Acute Code(s): GJW9775 - SNOMED Code(s): 148579775 Comment: still waiting on [facility] records. pt reports 8mm retained. Urologist is Dr. Ted [facility] or [facility]. Hx of multiple UTIs since July. Klebsiella Pna tx with bactrim last (9) DVT prophylaxis Current Visit: Yes Status: Acute Code(s): EIS7078 - SNOMED Code(s): 506803782 Comment: ambulation. low risk Status and Disposition: medicine inpatient for continued hypoxic respiratory failure
[2017-11-29] MEDS ORDERED: Furosemide IV* 10 MG/ML 2 ML VIAL (20 MG) IV ONE (14:12)
[2017-11-29] MEDS: Albuterol 2.5 MG/3 ML NEB.SOL* (0.083%) INH PRN (23:27)
[2017-11-30] MEDS: Piperacillin/Tazobactam 13.5 GM IV 24 hour continuous infusion IVPB SCH ×2 (05:25)
[2017-11-30 05:50] LABS: ABS Basophils 0.1 10^3/ul (0-0.2); ABS Eosinophils 0.1 10^3/ul (0-0.6); ABS Lymphocytes 4.1 10^3/ul (1.0-4.8); ABS Monocytes 1.4 10^3/ul (0-0.8); ABS Neutrophils 10.2 10^3/ul (1.5-7.7); ABS Nucleated RBC 0 10^3/ul; Eosinophil % 0.4 % (0-6); Hematocrit 31 % (35-47); Hemoglobin 9.7 g/dl (12.0-16.0); Lymphocyte % 26.1 % (25-47); Mean Corpuscular HGB Conc 32 g/dl (31-36); Mean Corpuscular Hemoglobin 25 pg (27-31); Mean Corpuscular Volume 78 fL (80-97); Mean Platelet Volume 7 um3 (7.4-10.4); Nucleated Red Blood Cells % 0; Platelet Count 312 10^3/ul (150-450); Red Blood Count 3.89 10^6/ul (4.0-5.4); Red Cell Distribution Width 15 % (10.5-15); White Blood Count 15.8 10^3/ul (3.5-10.8)
[2017-11-30 06:05] LABS: EGFR Non-African American 89.7 (>60)
[2017-11-30] MEDS: Insulin LISPRO* 1 UNITS UNIT SUBCUT SCH ×4 (08:08→20:30)
[2017-11-30] MEDS: BuPROPion XL* 300 MG TAB.XL PO SCH (08:34)
[2017-11-30] MEDS: Citalopram TAB* 20 MG PO SCH (08:34)
[2017-11-30] MEDS: Omeprazole CAP* 20 MG PO SCH (08:34)
[2017-11-30] MEDS: Albuterol 2.5 MG/3 ML NEB.SOL* (0.083%) INH PRN ×2 (11:45→19:08)
--- NOTE | 2017-11-30 14:47 | PN ---
Subjective Date of Service: 11/30/17 Interval History: [place] good during afternoon but worse by bed time with return of chest pressure and shortness of breath. Worse with lying flat. Leukocytosis persists. Sputum prelim with 3+ GPC resembling strep. very winded after walked halls. bringing up thick dunn and pink tinged sputum now. 100.0 temp today 11am. net negative 4.2 after the 20IV lasix yesterday. still maybe even worse LE edema. Objective Active Medications: Acetaminophen (Tylenol Tab*) 650 mg PO Q6H PRN PRN Reason: FEVER/PAIN Albuterol (Ventolin 2.5 Mg/3 Ml Neb.Deandra*) 2.5 mg INH Q2H PRN PRN Reason: SOB/WHEEZING Last Admin: 11/30/17 11:45 Dose: 2.5 mg Azithromycin (Zithromax Tab*) 250 mg PO DAILY [facility] Stop: 12/05/17 08:59 Bupropion HCl (Bupropion Xl*) 300 mg PO DAILY [facility] Last Admin: 11/30/17 08:34 Dose: 300 mg Dextrose (D50w Syringe 50 Ml*) 12.5 gm IV PUSH .FOR FS < 60 - SS PRN PRN Reason: FS < 60 Furosemide (Lasix Iv*) 20 mg IV ONCE ONE Stop: 11/30/17 14:39 Ceftriaxone Sodium 2 gm/ (Sodium Chloride) 100 mls @ 200 mls/hr IVPB Q24H [facility] Azithromycin 500 mg/ Dextrose 250 mls @ 250 mls/hr IVPB ONCE ONE Stop: 11/30/17 15:59 Insulin Human Lispro (Humalog*) 0 units SUBCUT ACHS [facility] PRN Reason: Protocol Last Admin: 11/30/17 12:11 Dose: Not Given Melatonin (Melatonin (Nf)) 3 mg PO BEDTIME PRN; Protocol PRN Reason: Sleep Omeprazole (Prilosec Cap*) 20 mg PO DAILY@0730 [facility] Last Admin: 11/30/17 08:34 Dose: 20 mg Ondansetron HCl (Zofran Inj*) 4 mg IV Q6H PRN PRN Reason: NAUSEA Vital Signs - 8 hr 11/30/17 11/30/17 11/30/17 07:23 08:00 11:31 Temperature 98.8 F 100.0 F Pulse Rate 108 103 Respiratory 16 20 24 Rate Blood Pressure 141/75 147/82 (mmHg) O2 Sat by Pulse 87 98 Oximetry 11/30/17 11:46 Temperature Pulse Rate 101 Respiratory 20 Rate Blood Pressure (mmHg) O2 Sat by Pulse 95 Oximetry Oxygen Devices in Use Now: Nasal Cannula Appearance: NAD, anxious appearing. Ears/Nose/Mouth/Throat: NL Teeth, Lips, Gums, Mucous Membranes Moist Neck: NL Appearance and Movements; NL JVP Respiratory: Symmetrical Chest Expansion and Respiratory Effort, - - slight rhonchi right midlung. no wheezing or rales. Abdominal: NL Sounds; No Tenderness; No Distention, - - obese Extremities: - - 1-2+ edema b/l shins. Skin: No Rash or Ulcers Neurological: Alert and Oriented x 3, NL Sensation, NL Muscle Strength and Tone Nutrition: Taking PO's Result Diagrams: 11/30/17 05:32 11/30/17 05:32 Additional Lab and Data: Laboratory Results - last 24 hr 11/29/17 11/29/17 11/29/17 10:31 15:23 18:47 WBC RBC Hgb Hct MCV MCH MCHC RDW Plt Count MPV Neut % (Auto) Lymph % (Auto) [place] % (Auto) Eos % (Auto) Baso % (Auto) Absolute Neuts (auto) Absolute Lymphs (auto) Absolute Monos (auto) Absolute Eos (auto) Absolute Basos (auto) Absolute Nucleated RBC Nucleated RBC % Sodium Potassium Chloride Carbon Dioxide Anion Gap BUN Creatinine Est GFR ( Amer) Est GFR (Non-Af Amer) BUN/Creatinine Ratio Glucose POC Glucose (mg/dL) 214 H 137 H 105 H Calcium Magnesium 11/30/17 11/30/17 11/30/17 05:32 05:32 08:04 WBC 15.8 H RBC 3.89 L Hgb 9.7 L Hct 31 L MCV 78 L MCH 25 L MCHC 32 RDW 15 Plt Count 312 MPV 7 L Neut % (Auto) 64.1 Lymph % (Auto) 26.1 [place] % (Auto) 8.9 H Eos % (Auto) 0.4 Baso % (Auto) 0.5 Absolute Neuts (auto) 10.2 H Absolute Lymphs (auto) 4.1 Absolute Monos (auto) 1.4 H Absolute Eos (auto) 0.1 Absolute Basos (auto) 0.1 Absolute Nucleated RBC 0 Nucleated RBC % 0 Sodium 137 Potassium 3.3 L Chloride 104 Carbon Dioxide 24 Anion Gap 9 BUN 12 Creatinine 0.72 Est GFR ( Amer) 115.4 Est GFR (Non-Af Amer) 89.7 BUN/Creatinine Ratio 16.7 Glucose 118 H POC Glucose (mg/dL) 91 Calcium 8.3 L Magnesium 1.7 L Microbiology and Other Data: Microbiology 11/28/17 01:39 Blood Venous Aerobic Blood Culture - Preliminary No Growth Day 2 11/28/17 01:39 Blood Venous Anaerobic Blood Culture - Preliminary No Growth Day 2 11/29/17 14:35 Sputum Gram Stain - Final 11/29/17 08:53 Urine Legionella Urinary Antigen - Final Negative Legionella 11/29/17 08:53 Urine Streptococcus pneumoniae Ag Screen - Final Negative S. pneumo Antigen 11/29/17 08:46 Nasal Nasal Screen MRSA (PCR)(JEANNINE) - Final Mrsa Not Detected 11/28/17 00:45 Urine Urine Culture - Final No Growth (<1,000 CFU/mL) 11/27/17 19:20 Sputum Gram Stain - Final 11/28/17 12:45 Nasopharyngeal Influenza Types A,B Antigen (JEANNINE) - Final Specimen received for Influenza A/B Molecular testing Assess/Plan/Problems-Billing Assessment: 42 yo female PMH of super morbid obesity, TAHMINA on CPAP(15mmHg), depression, GERD who was discharged from [facility] on 11/27 after a stay for sepsis 2ndary to an obstructing ureteral stone s/p stent placement 11/26. Immediately upon discharge she developed progressive SOB, wheezing, cough, generalized chest/trunk pains. Admitted for sepsis 2nd to BLL pneumonia. s/p vanc/zosyn. Sputum GPC resembles strep. acute hypoxic respiratory failure, leukocytosis, tachycardia persists. Now cftx, azithromycin. - Patient Problems (1) Sepsis Current Visit: Yes Status: Acute Comment: Screens positive for sepsis - elevated WBC (persists), HR >100 (persists intermittently), lactic 2.2 (now resolved) Suspect secondary to b/l pneumonia. acute hypoxic respiratory failure, leukocytosis and tachycardia persist despite broad spectrum anitbiotics. Influenza negative adding atypical coverage with azithromycin and switching to cftx 2g daily for suspicion of Strep pneumonia. (2) Acute respiratory failure with hypoxia Current Visit: Yes Status: Acute Code(s): J96.01 - ACUTE RESPIRATORY FAILURE WITH HYPOXIA SNOMED Code(s): 98621696 Comment: 2/2 pneumonia. volume overloaded as well with the IVF for sepsis protocol. BNP modestly elevated to 111 on 11/29 but underestimated in setting of super morbid obesity. If anything patinet more orthopenic and worse LE edema ( likely from keeping upright). given another lasix 20mg IV today. could consider ECHO. repeating CXR PA/lateral today. (3) Pneumonia Current Visit: Yes Status: Acute Code(s): J18.9 - PNEUMONIA, UNSPECIFIED ORGANISM SNOMED Code(s): 329430023 Comment: - Bilateral pneumonia on CTA - concern for HCAP with recent hospitalization. stoping zosyn. switch to Ceftriaxone 2g daily and azithromycin to better cover atyipicals and potential strep pna. s/p Vancomycin as MRSA nares negtative - f/u final sputum cx (3+ GPC, resembling strep) - blood cx ngtd - restart steroids, prednisone 40mg daily - continue nebs prn - wean oxygen as tolerated. sat goal >94% - Encourage ambulation - Strep and legionella Urine Antigens negative. (4) Depression Current Visit: Yes Status: Chronic Code(s): F32.9 - MAJOR DEPRESSIVE DISORDER, SINGLE EPISODE, UNSPECIFIED SNOMED Code(s): 86151955 Comment: - stable. Continue bupropion. hold celexa for QTc interaction while on azithromycin. (5) Diabetes Current Visit: Yes Status: Chronic Code(s): E11.9 - TYPE 2 DIABETES MELLITUS WITHOUT COMPLICATIONS SNOMED Code(s): 81036099 Comment: - Hold Metformin - Continue FSBG with lispro SS, has not required. (6) TAHMINA (obstructive sleep apnea) Current Visit: Yes Status: Chronic Code(s): G47.33 - OBSTRUCTIVE SLEEP APNEA (ADULT) (PEDIATRIC) SNOMED Code(s): 50879166 Comment: - continue cpap, 15mm Hg (7) History of urethral stent Current Visit: Yes Status: Acute Code(s): ZXJ6628 - SNOMED Code(s): 563617829 Comment: still waiting on [facility] records. pt reports 8mm retained. Urologist is Dr. Ted Cook or [facility]. Hx of multiple UTIs since July. Klebsiella Pna tx with bactrim last (8) DVT prophylaxis Current Visit: Yes Status: Acute Code(s): OCV3600 - SNOMED Code(s): 235253227 Comment: ambulation. low risk (9) Full code status Current Visit: Yes Status: Acute Code(s): Z78.9 - OTHER SPECIFIED HEALTH STATUS SNOMED Code(s): 186594437 Status and Disposition: medicine inpatient for continued acute hypoxic respiratory failure, tachycardia , volume overload.
[2017-11-30] MEDS ORDERED: cefTRIAXone(*) 2 GM in NS 0.9% 50 ML* 50 ML IVPB SCH (15:00)
--- NOTE | 2017-11-30 15:42 | RAD ---
INDICATION: Ureteral stent placement November 26, 2017. Now with shortness of breath. COMPARISON: Chest x-ray November 27, 2017 TECHNIQUE: PA and lateral views of the chest were obtained. FINDINGS: The heart and mediastinum are normal in size and contour. There is interval appearance of patchy density overlying the bilateral mid-level and lower lungs. There is a 2.4 cm density overlying the right upper lung not displacing the previous chest x-ray. There is no significant costophrenic angle blunting indicate large pleural effusions. Visualized bones are normal for the patient's age. There is no radiographic evidence of free air beneath the diaphragm IMPRESSION: INTERVAL APPEARANCE OF MULTIFOCAL PATCHY DENSITIES. THE APPEARANCE FROM NOVEMBER 27, 2017 INDICATES AN INFECTIOUS ETIOLOGY, PERHAPS SEPTIC EMBOLI. ALTERNATIVE DIAGNOSES COULD INCLUDE PULMONARY EDEMA OR EARLY ARDS.
[2017-11-30] MEDS: Azithromycin IV(*) 500 MG in NS 0.9% 250 ML* 250 ML IVPB ONE ×2 (16:03→16:55)
[2017-11-30] MEDS: Furosemide IV* 10 MG/ML 2 ML VIAL (20 MG) IV ONE ×2 (16:03→16:55)
[2017-11-30] MEDS ORDERED: Vancomycin Trough Check NOTE FOLLOW UP ONE (16:30)
[2017-11-30] MEDS ORDERED: Azithromycin TAB* 250 MG PO ONE (16:45)
[2017-11-30] MEDS ORDERED: Furosemide TAB* 40 MG PO ONE (16:45)
[2017-11-30] MEDS: [UNRECOGNIZED DRUG - OTHER] PO SCH (19:30)
[2017-12-01 06:26] LABS: Hematocrit 31 % (35-47); Hemoglobin 10.4 g/dl (12.0-16.0); Mean Corpuscular HGB Conc 33 g/dl (31-36); Mean Corpuscular Hemoglobin 26 pg (27-31); Mean Corpuscular Volume 77 fL (80-97); Mean Platelet Volume 8 um3 (7.4-10.4); Platelet Count 322 10^3/ul (150-450); Red Blood Count 4.06 10^6/ul (4.0-5.4); Red Cell Distribution Width 15 % (10.5-15); White Blood Count 13.4 10^3/ul (3.5-10.8)
[2017-12-01 06:45] LABS: INR 1.02 (0.77-1.02)
[2017-12-01 07:02] LABS: ABS Basophils 0.2 10^3/ul (0-0.2); ABS Eosinophils 0.1 10^3/ul (0-0.6); ABS Lymphocytes 3.1 10^3/ul (1.0-4.8); ABS Monocytes 0.8 10^3/ul (0-0.8); ABS Neutrophils 9.1 10^3/ul (1.5-7.7); ABS Nucleated RBC 0 10^3/ul; Lymphocyte % 23.4 % (25-47); Nucleated Red Blood Cells % 0
[2017-12-01] MEDS: Insulin LISPRO* 1 UNITS UNIT SUBCUT SCH ×4 (08:10→21:12)
[2017-12-01] MEDS ORDERED: Magnesium Sulfate 1 GM IV* 1 GM/100 ML BAG IV ONE (08:22)
[2017-12-01] MEDS ORDERED: Perflutren Lipid Microsphere* 3 ML VIAL ONE (08:40)
[2017-12-01] MEDS ORDERED: Azithromycin TAB* 250 MG PO SCH (09:00)
[2017-12-01] MEDS: [UNRECOGNIZED DRUG - OTHER] PO SCH ×2 (09:10→21:11)
[2017-12-01] MEDS: Potassium Chlor TAB* 20 MEQ TAB.ER PO SCH ×2 (09:15→11:41)
[2017-12-01] MEDS: Omeprazole CAP* 20 MG PO SCH (09:15)
[2017-12-01] MEDS: BuPROPion XL* 300 MG TAB.XL PO SCH (09:16)
[2017-12-01] MEDS: predniSONE TAB* 20 MG PO SCH (09:16)
[2017-12-01] MEDS: Azithromycin TAB* 250 MG PO SCH (09:16)
--- NOTE | 2017-12-01 10:25 | ECHO ---
Patient: DAVID [facility]ILEL [facility] Rec#: [id number] : 1975 Date: 12/01/2017 Age: 42y Height: 160 cm / 63.0 in Weight: 172.2 kg / 379.5 lbs Sex: F BSA: 2.5 Room#: [facility] Admit Date#: 11/28/2017 Type: Inpatient Referring: Richard Vernon Reading: Nba Sotelo MD Parts Room Clerk: Lilibeth Farnsworth RN RDCS CC: Sommer Conroy NP Transthoracic Echocardiogram Indication: Shortness of breath BP: 139/72 HR: 90 Rhythm: NSR Findings History: Super morbid obesity, TAHMINA on CPAP, S/P sepsis with ureteral stone and stenting, currently with bilateral pneumonia Technical Comments: The study is technically limited due to patient body habitus. Completed at 0950. Left Ventricle: The left ventricular chamber size is mildly dilated. Mild to moderate concentric left ventricular hypertrophy is observed. Global left ventricular wall motion and contractility are within normal limits. There is normal left ventricular systolic function. The estimated ejection fraction is 55-60%. The assessment of diastolic function is non-diagnostic. Left Atrium: The left atrium is mildly dilated. Right Ventricle: The right ventricle is mildly dilated. The right ventricular global systolic function is low normal. Right Atrium: The right atrium is mildly dilated. Aortic Valve: The aortic valve structure is not well visualized. There is no evidence of aortic regurgitation. There is no evidence of aortic stenosis. Mitral Valve: The mitral valve leaflets are mildly thickened. There is mild mitral regurgitation. There is no evidence of mitral stenosis. Tricuspid Valve: The tricuspid valve structure is not well visualized. There is trace tricuspid regurgitation. There is no tricuspid stenosis. Pulmonic Valve: The pulmonic valve structure is not well visualized. There is a trace pulmonic regurgitation. There is no pulmonic stenosis. Pericardium: There is no significant pericardial effusion. A pericardial fat pad is visualized. Aorta: There is no dilatation of the ascending aorta. There is no dilatation of the aortic arch. There is no dilation of the aortic root. Pulmonary Artery: The main pulmonary artery is not well visualized. Venous: The venous system is not well visualized. The inferior vena cava is not visualized. Contrast: Definity was used to optimize study. A total of 5 ml of diluted Definity was given IV. Conclusions The study is technically limited due to patient body habitus. Mild to moderate concentric left ventricular hypertrophy is observed. The estimated ejection fraction is 55-60%. There is normal left ventricular systolic function. The left atrium is mildly dilated. The right atrium is mildly dilated. There is mild mitral regurgitation. There is trace tricuspid regurgitation. There is a trace pulmonic regurgitation. There are no significant vegetations involving the mitral or aortic valve. The pulmonic and tricuspid valves are not well visualized. No reports of prior studies are offered for comparison. Measurements Name Value Normal Range RVDdMajor (2D) 4.8 cm (2.2 - 4.4) RAd ISD 4CH 5.5 cm (3.4 - 4.9) RA (A4C)W 4.5 cm (2.9 - 4.6) IVSd (2D) 1.4 cm (0.6 - 1) LVPWd (2D) 1.4 cm (0.6 - 1) LVIDd (2D) 5.6 cm (3.6 - 5.4) LVIDs (2D) 4.1 cm - LV FS (2D) 27 % (25 - 45) Aortic Annulus 2.3 cm (1.4 - 2.6) Ao root diameter (2D) 3.4 cm (2.1 - 3.5) Ascending Ao 3.4 cm (2.1 - 3.4) Aortic arch 3.3 cm (1.8 - 3.4) LA dimension (AP) 2D 5 cm (2.3 - 3.8) LAd ISD 4CH 5.8 cm (2.9 - 5.3) LA ISD 4CH W 4.8 cm (2.5 - 4.5) Name Value Normal Range LA ESV SP 4CH (A/L) 73 ml - LA ESV SP 2CH (A/L) 67 ml - LA ESV BP (A/L) 70 ml - LA ESV BP (A/L) index 28 ml/m2 - LA ESV SP 4CH (MOD) 70 ml - LA ESV SP 2CH (MOD) 64 ml - Name Value Normal Range MV E-wave Vmax 1.2 m/sec - MV deceleration time 166 msec - MV A-wave Vmax 0.76 m/sec - MV E:A ratio 1.5 ratio - LV septal e' Vmax 0.07 m/sec - LV lateral e' Vmax 0.08 m/sec - LV E:e' septal ratio 17.1 ratio - LV E:e' lateral ratio 15 ratio - Name Value Normal Range AV Vmax 1.7 m/sec - AV VTI 37.1 cm - AV peak gradient 12 mmHg - AV mean gradient 7.6 mmHg - LVOT Vmax 1.2 m/sec - LVOT VTI 26.4 cm - LVOT peak gradient 5.7 mmHg - LVOT mean gradient 3.4 mmHg - GEETHA Vmax 1.4 m/sec - Name Value Normal Range TR Vmax 2.9 m/sec - TR peak gradient 34 mmHg - RAP 8 mmHg - RVSP 42 mmHg - Name Value Normal Range PV Vmax 1 m/sec -
[2017-12-01] MEDS ORDERED: Furosemide TAB* 20 MG PO ONE (13:34)
[2017-12-01] MEDS ORDERED: cefTRIAXone 2000 MG SYRINGE IVPB Q24H IVPB SCH ×2 (15:00)
--- NOTE | 2017-12-01 17:39 | PN ---
Subjective Date of Service: 12/01/17 Interval History: Pt feeling slightly better but still on 4L and desat to 77 by time walked back from restroom without oxygen. Sputum resulted normal scott. wbc to 13.4. tmax 99.3 net negative 4.48L. ECHO EF 55-60% Some [facility] records finally received. still waiting on UCx/BCx. Objective Active Medications: Acetaminophen (Tylenol Tab*) 650 mg PO Q6H PRN PRN Reason: FEVER/PAIN Last Admin: 12/01/17 06:23 Dose: 650 mg Albuterol (Ventolin 2.5 Mg/3 Ml Neb.Deandra*) 2.5 mg INH Q2H PRN PRN Reason: SOB/WHEEZING Last Admin: 11/30/17 19:08 Dose: 2.5 mg Azithromycin (Zithromax Tab*) 500 mg PO DAILY [facility] Stop: 12/04/17 08:59 Last Admin: 12/01/17 09:16 Dose: 500 mg Bupropion HCl (Bupropion Xl*) 300 mg PO DAILY [facility] Last Admin: 12/01/17 09:16 Dose: 300 mg Dextrose (D50w Syringe 50 Ml*) 12.5 gm IV PUSH .FOR FS < 60 - SS PRN PRN Reason: FS < 60 Furosemide (Lasix Tab*) 20 mg PO DAILY [facility] Ceftriaxone Sodium 2,000 mg/ (Sterile Water) 20 mls @ 40 mls/hr IVPB Q24H [facility] Last Admin: 12/01/17 15:48 Dose: 40 mls/hr Insulin Human Lispro (Humalog*) 0 units SUBCUT ACHS [facility] PRN Reason: Protocol Last Admin: 12/01/17 17:30 Dose: 2 units Melatonin (Melatonin (Nf)) 3 mg PO BEDTIME PRN; Protocol PRN Reason: Sleep Pto Nf Med - (Sprintec Ocp) 1 admin PO DAILY [facility] Last Admin: 12/01/17 09:10 Dose: Not Given Omeprazole (Prilosec Cap*) 20 mg PO DAILY@0730 [facility] Last Admin: 12/01/17 09:15 Dose: 20 mg Ondansetron HCl (Zofran Inj*) 4 mg IV Q6H PRN PRN Reason: NAUSEA Prednisone (Deltasone Tab*) 40 mg PO DAILY [facility] Last Admin: 12/01/17 09:16 Dose: 40 mg Vital Signs - 8 hr 12/01/17 12/01/17 12/01/17 11:19 15:03 16:00 Temperature 98.0 F 98.0 F Pulse Rate 89 88 Respiratory 18 17 Rate Blood Pressure 135/78 157/78 (mmHg) O2 Sat by Pulse 99 92 92 Oximetry Oxygen Devices in Use Now: Nasal Cannula Appearance: NAD, sitting in chair Eyes: No Scleral Icterus, PERRLA Ears/Nose/Mouth/Throat: NL Teeth, Lips, Gums, Mucous Membranes Moist Neck: NL Appearance and Movements; NL JVP, Trachea Midline Respiratory: Symmetrical Chest Expansion and Respiratory Effort, Clear to Auscultation Cardiovascular: NL Sounds; No Murmurs; No JVD, RRR Abdominal: NL Sounds; No Tenderness; No Distention, - - morbidly obese Extremities: - - 1-2+ pitting edema Skin: No Rash or Ulcers, No Nodules or Sclerosis Neurological: Alert and Oriented x 3, NL Sensation, NL Muscle Strength and Tone Nutrition: Taking PO's Result Diagrams: 12/01/17 05:59 12/01/17 05:59 Additional Lab and Data: Laboratory Results - last 24 hr 11/30/17 12/01/17 12/01/17 20:17 05:59 05:59 WBC 13.4 H RBC 4.06 Hgb 10.4 L Hct 31 L MCV 77 L MCH 26 L MCHC 33 RDW 15 Plt Count 322 MPV 8 Neut % (Auto) 68.3 Lymph % (Auto) 23.4 L Navarro % (Auto) 6.2 Eos % (Auto) 1.0 Baso % (Auto) 1.1 Absolute Neuts (auto) 9.1 H Absolute Lymphs (auto) 3.1 Absolute Monos (auto) 0.8 Absolute Eos (auto) 0.1 Absolute Basos (auto) 0.2 Absolute Nucleated RBC 0 Nucleated RBC % 0 INR (Anticoag Therapy) Fibrinogen Sodium 134 Potassium 3.2 L Chloride 100 L Carbon Dioxide 28 Anion Gap 6 BUN 8 Creatinine 0.65 Est GFR ( Amer) 129.8 Est GFR (Non-Af Amer) 101.0 BUN/Creatinine Ratio 12.3 Glucose 119 H POC Glucose (mg/dL) 127 H Calcium 8.4 L Magnesium 1.9 C-Reactive Protein 86.60 H Procalcitonin 12/01/17 12/01/1712/01/18 05:59 06:00 07:47 WBC RBC Hgb Hct MCV MCH MCHC RDW Plt Count MPV Neut % (Auto) Lymph % (Auto) Navarro % (Auto) Eos % (Auto) Baso % (Auto) Absolute Neuts (auto) Absolute Lymphs (auto) Absolute Monos (auto) Absolute Eos (auto) Absolute Basos (auto) Absolute Nucleated RBC Nucleated RBC % INR (Anticoag Therapy) 1.02 Fibrinogen 639 H Sodium Potassium Chloride Carbon Dioxide Anion Gap BUN Creatinine Est GFR ( Amer) Est GFR (Non-Af Amer) BUN/Creatinine Ratio Glucose POC Glucose (mg/dL) 129 H Calcium Magnesium C-Reactive Protein Procalcitonin < 0.1 12/01/17 12/01/17 12/01/17 11:50 17:17 20:52 WBC RBC Hgb Hct MCV MCH MCHC RDW Plt Count MPV Neut % (Auto) Lymph % (Auto) Navarro % (Auto) Eos % (Auto) Baso % (Auto) Absolute Neuts (auto) Absolute Lymphs (auto) Absolute Monos (auto) Absolute Eos (auto) Absolute Basos (auto) Absolute Nucleated RBC Nucleated RBC % INR (Anticoag Therapy) Fibrinogen Sodium Potassium Chloride Carbon Dioxide Anion Gap BUN Creatinine Est GFR ( Amer) Est GFR (Non-Af Amer) BUN/Creatinine Ratio Glucose POC Glucose (mg/dL) 127 H 133 H 134 H Calcium Magnesium C-Reactive Protein Procalcitonin Microbiology and Other Data: Microbiology 11/29/17 14:35 Sputum Gram Stain - Final 11/29/17 14:35 Sputum Sputum Culture - Final Normal Scott 11/28/17 01:39 Blood Venous Aerobic Blood Culture - Preliminary No Growth Day 3 11/28/17 01:39 Blood Venous Anaerobic Blood Culture - Preliminary No Growth Day 3 11/29/17 08:53 Urine Legionella Urinary Antigen - Final Negative Legionella 11/29/17 08:53 Urine Streptococcus pneumoniae Ag Screen - Final Negative S. pneumo Antigen 11/29/17 08:46 Nasal Nasal Screen MRSA (PCR)(JEANNINE) - Final Mrsa Not Detected 11/28/17 00:45 Urine Urine Culture - Final No Growth (<1,000 CFU/mL) 11/27/17 19:20 Sputum Gram Stain - Final 11/28/17 12:45 Nasopharyngeal Influenza Types A,B Antigen (JEANNINE) - Final Specimen received for Influenza A/B Molecular testing Assess/Plan/Problems-Billing Assessment: 42 yo female PMH of super morbid obesity, TAHMINA on CPAP(15mmHg), depression, GERD who was discharged from [facility] on 11/27 after a stay for sepsis 2ndary to an obstructing 8mm left ureteral stone s/p stent placement 11/26. Immediately upon discharge she developed progressive SOB, wheezing, cough, generalized chest/ trunk pains. Admitted for sepsis 2nd to diffuse bilateral pneumonia. s/p vanc/ zosyn. Acute hypoxic respiratory failure, leukocytosis, tachycardia persists. Now cftx, azithromycin. - Patient Problems (1) Sepsis Current Visit: Yes Status: Acute Comment: Screens positive for sepsis - elevated WBC (persists), HR >100 (resolving), lactic 2.2 (now resolved) Suspect secondary to b/l pneumonia vs ARDS vs other inflammatory lung dz. acute hypoxic respiratory failure, leukocytosis persist despite several days of antibiotics. Influenza negative adding atypical coverage with azithromycin and switching to cftx 2g daily for suspicion of Strep pneumonia. (2) Acute respiratory failure with hypoxia Current Visit: Yes Status: Acute Code(s): J96.01 - ACUTE RESPIRATORY FAILURE WITH HYPOXIA SNOMED Code(s): 91083873 Comment: 2/ pneumonia. volume overloaded as well with the IVF for sepsis protocol. BNP modestly elevated to 111 on 11/29 but underestimated in setting of super morbid obesity. lasix 20mg po daily ECHO wnl Pulm and ID consulted given failure to improve. (3) Pneumonia Current Visit: Yes Status: Acute Code(s): J18.9 - PNEUMONIA, UNSPECIFIED ORGANISM SNOMED Code(s): 768710318 Comment: - Bilateral pneumonia on CTA and 11/30 PA/Lat CXR - appreciate ID recs. - pulm consuled s/p zosyn(also got 11/25-11/27 at [facility]), currently Ceftriaxone 2g daily and azithromycin to better cover atyipicals and potential strep pna. s/p Vancomycin as MRSA nares negtative - final sputum cx (3+ GPC, resembling strep) was normal scott - blood cx ngtd - prednisone 40mg daily - continue nebs prn - wean oxygen as tolerated. sat goal >94% - Encourage ambulation - Strep and legionella Urine Antigens negative. - ddx ARDS, [employer]. ?consideration for BAL (4) Depression Current Visit: Yes Status: Chronic Code(s): F32.9 - MAJOR DEPRESSIVE DISORDER, SINGLE EPISODE, UNSPECIFIED SNOMED Code(s): 24107407 Comment: - stable. Continue bupropion. hold celexa for QTc interaction while on azithromycin. (5) Diabetes Current Visit: Yes Status: Chronic Code(s): E11.9 - TYPE 2 DIABETES MELLITUS WITHOUT COMPLICATIONS SNOMED Code(s): 13231831 Comment: - Hold Metformin - Continue FSBG with lispro SS, has not required. (6) TAHMINA (obstructive sleep apnea) Current Visit: Yes Status: Chronic Code(s): G47.33 - OBSTRUCTIVE SLEEP APNEA (ADULT) (PEDIATRIC) SNOMED Code(s): 23188327 Comment: - continue cpap, 15mm Hg (7) History of urethral stent Current Visit: Yes Status: Acute Code(s): [id number] - SNOMED Code(s): 813863968 Comment: [facility] records obtained, still waiting on UCx and BCx data. 8mm retained stone ib ke. Urologist is Dr. Ted Cook or [facility]. Hx of multiple UTIs since July. Klebsiella Pna tx with bactrim last (8) DVT prophylaxis Current Visit: Yes Status: Acute Code(s): LDX3673 - SNOMED Code(s): 583534574 Comment: ambulation. low risk (9) Full code status Current Visit: Yes Status: Acute Code(s): Z78.9 - OTHER SPECIFIED HEALTH STATUS SNOMED Code(s): 222542758 Status and Disposition: medicine inpatient for continued acute hypoxic respiratory failure, tachycardia , volume overload.
--- NOTE | 2017-12-01 17:40 | CONS ---
CONSULTATION REPORT: DATE OF CONSULT: 12/01/17 REQUESTING PHYSICIAN: Dr. Vernon. CONSULTING SERVICE: Infectious Disease. REASON FOR CONSULT: Acute hypoxemic respiratory failure. IMPRESSION: 1. Acute hypoxemic respiratory failure was present on admission and due to combination and pneumonia and pulmonary edema. 2. Pneumonia, hospital acquired at an outside facility, patchy bilateral infiltrates on chest CT. The differential diagnosis I agree with Dr. Vernon includes atypical agents versus streptococcal infection, there are 3+ strep in the sputum Gram stain. Culture came, was reported as normal scott, viral pneumonia was also a consideration. Noninfectious including cryptogenic organizing pneumonia is always a consideration if she does not start making some serious progress. 3. Supermorbid obesity. 4. Recent hospitalization for sepsis due to obstructed ureteral stone status post stent placement in [facility] last week. RECOMMENDATIONS: I agree with ceftriaxone 2 g a day and azithromycin 500 mg daily. We will follow her oxygen saturation. We will add a C-reactive protein and procalcitonin, which may be helpful in deciding on when to change antibiotics to pills. HISTORY OF PRESENT ILLNESS: This is a 42-year-old woman who last week was at [facility] with sepsis due to an obstructed ureteral stone. She had a stent placed there. She was treated with Zosyn while in the hospital. She was discharged on Thursday which was 2 days after admission. A couple of hours after she left, she became progressively dyspneic with occasional cough. No chest pain. No fevers, chills, or sweats. She did not get a chance to start taking the Augmentin she was prescribed as an outpatient. Because of those symptoms, she called 911. She was brought to the hospital here. Initially her white count on 11/27/17 was 14,000. She was afebrile, in the low 80s when she was seen by EMT. She had improvement in her oxygen saturation with supplemental oxygen which she has continued on since that time. She has been between 2 and 4 L a minute. Her saturation today is in the high 90s after some diuresis was started yesterday. Overall, her breathing is slowly improving. She has been up to the restroom with supplemental oxygen and does not get short of breath. She has not been wearing the oxygen tubing this morning and was not short of breath at rest. PAST MEDICAL HISTORY: 1. Morbid obesity. 2. Urolithiasis, status post ureteral stent last week. 3. Obstructive sleep apnea, on CPAP. 4. Gastroesophageal reflux disease. 5. Depression. MEDICATIONS: 1. Tylenol. 2. Albuterol. 3. Azithromycin 500 mg by mouth daily. 4. Ceftriaxone 2 g IV daily. 5. Bupropion. 6. Magnesium. 7. Omeprazole. 8. Prednisone 40 mg a day. ALLERGIES: CIPRO. FAMILY HISTORY: No recurrent infections or tuberculosis. Mother is alive in the 60s with COPD and hypertension. Father is estranged and does not know his health history. SOCIAL HISTORY: She lives in [place] with her and child. She was recently in an outside hospital. She has no travel or sick contacts. REVIEW OF SYSTEMS: A 14-point review of systems was negative except as noted above. PHYSICAL EXAM: Vital Signs: Temperature is 37, heart rate 90, respiratory rate 18, blood pressure 130/70, oxygen saturation 99% on 4 L. General: She is awake, not in distress. Neurologic: She is oriented x3. Follows all commands. HEENT: There is no conjunctival hemorrhage. Oropharynx without lesions. Neck: Supple without nuchal rigidity. Lymph Nodes: There is no inguinal, axillary, or epitrochlear lymphadenopathy. Heart: Regular rate and rhythm without murmurs, rubs, or gallops. Lungs: Clear to auscultation bilaterally without wheezes, rales, or rhonchi. Abdomen: Soft, nontender. There are bowel sounds present. Skin: There is no rash or splinter hemorrhages. Musculoskeletal: No spine tenderness to palpation or joint synovitis. LABORATORY DATA: White blood cell count 13, hemoglobin 10, and platelets 332, 000. Creatinine is 0.6. Please see impression and recommendations outlined above, which I have discussed with Dr. Vernon. Thank your for asking me to see Ms. Wilson in consultation. [id number]/[facility] #: [id number] TALAT
--- NOTE | 2017-12-02 01:32 | CONS ---
PULMONARY CONSULTATION REPORT: DATE OF CONSULTATION: 12/01/17 CONSULTATION REQUESTED BY: Dr. Vernon. REASON FOR CONSULTATION: Evaluation of abnormal CT chest. HISTORY OF PRESENT ILLNESS: The patient is a 42-year-old super morbidly obese female who was recently admitted at [facility] for sepsis secondary to obstructing left ureteral stent, underwent stent placement on 12/16/17. The patient reported that she has been feeling ill and sick prior to the admission, developed progressively worsening shortness of breath after she returned home after the procedure. The patient also reported wheeze during that time. The patient did not feel better. Symptoms got worse and decided to come in to the emergency room for further evaluation. The patient seen and examined at bedside by me. The patient reported slight improvement in her symptoms today. The patient reports that she was able to ambulate without being significantly short of breath. She reports dry cough. The patient denies history of asthma or other lung problems. She is a lifelong nonsmoker. The patient reports history of GERD, controlled on medications. The patient denies recent sick contacts. The patient denies recent travel or immobilization. The patient reports that she had received lot of sedation during other procedure and also IV fluids. Further evaluation included chest x-ray and CT scan of the chest. I have personally reviewed chest x-ray on admission and CT scan of the chest. The patient is noted to have bilateral airspace opacities on the chest x-ray, limited secondary to body habitus. CT of the chest did not reveal filling defects. She was noted to have patchy airspace opacities bilaterally with ground glass appearance. The patient also reported having chills and rigors recently. The patient did have elevated white count on admission. The patient was started on bronchodilators, antibiotics for a community-acquired pneumonia and prednisone given the reactive airway disease. PAST MEDICAL HISTORY: 1. Urolithiasis, status post stent placement. 2. TAHMINA, on CPAP. 3. GERD. 4. Depression. 5. Super morbid obesity. PAST SURGICAL HISTORY: 1. Left kidney stent placement on 11/26/17 at [place]. 2. Lithotripsy. 3. LASIK eye surgery. MEDICATIONS AT HOME: 1. Bupropion. 2. Citalopram. 3. Ethynylestradiol 4. Prilosec. 5. Metformin. ALLERGIES: CIPRO. FAMILY HISTORY: Mother has COPD and hypertension. Father has lung issues. Brother is healthy. SOCIAL HISTORY: Denies tobacco, alcohol or recreational drug abuse. Lives at home with . REVIEW OF SYSTEMS: All systems reviewed and as per HPI. PHYSICAL EXAM: The patient in bed, in no apparent distress, morbidly obese female. Vital Signs: Temperature 98, pulse 88 beats per minute, respiratory rate 17 per minute, O2 sat 92% on 4 L, blood pressure 157/78. HEENT: Pupils are equal, reactive to light, mucous membranes moist. Lungs: Diminished air entry bilaterally, distant breath sounds. No wheeze. Cardiovascular: S1, S2 present, regular. No murmurs, gallops or rubs. Abdomen: Obese, bowel sounds present, nontender and nondistended. Extremities: Trace edema bilaterally. LABORATORY DATA/DIAGNOSTIC STUDIES: WBC count 13.4, hemoglobin 10.4, hematocrit 31, platelet count 322. Sodium 134, potassium 3.2, chloride 100, bicarb 28, BUN 8, creatinine 0.65. CRP 86. Chest x-ray and CTA of chest as described above in HPI. IMPRESSION AND RECOMMENDATIONS: 42-year-old female with history of kidney stones, recent urinary stent placement with worsening shortness of breath, wheezing. 1. Reactive airway disease secondary to viral bronchitis. 2. Viral pneumonia. 3. Acute diastolic congestive heart failure. The patient is clinically improving. I do not suspect acute respiratory distress syndrome. Her O2 requirements have been coming down. Ground glass opacities bilaterally are consistent with viral pneumonia. Continue with current management. Will need repeat CT chest in about 6 weeks. Thank you for allowing me to participate in the care of your patient. Will follow up with you. [id number]/[facility] #: [id number] TALAT
[2017-12-02 06:41] LABS: Hematocrit 32 % (35-47); Hemoglobin 10.3 g/dl (12.0-16.0); Mean Corpuscular HGB Conc 32 g/dl (31-36); Mean Corpuscular Hemoglobin 25 pg (27-31); Mean Corpuscular Volume 78 fL (80-97); Mean Platelet Volume 7 um3 (7.4-10.4); Platelet Count 349 10^3/ul (150-450); Red Blood Count 4.09 10^6/ul (4.0-5.4); Red Cell Distribution Width 15 % (10.5-15); White Blood Count 15.8 10^3/ul (3.5-10.8)
[2017-12-02 07:33] LABS: ABS Basophils 0.2 10^3/ul (0-0.2); ABS Eosinophils 0.2 10^3/ul (0-0.6); ABS Monocytes 0.8 10^3/ul (0-0.8); ABS Neutrophils 10.7 10^3/ul (1.5-7.7); ABS Nucleated RBC 0 10^3/ul; Eosinophil % 1.3 % (0-6); Nucleated Red Blood Cells % 0
[2017-12-02] MEDS: Insulin LISPRO* 1 UNITS UNIT SUBCUT SCH ×2 (07:58→12:43)
[2017-12-02] MEDS: [UNRECOGNIZED DRUG - OTHER] PO SCH (08:11)
[2017-12-02] MEDS: predniSONE TAB* 20 MG PO SCH (08:11)
[2017-12-02] MEDS: Azithromycin TAB* 250 MG PO SCH (08:11)
[2017-12-02] MEDS: Omeprazole CAP* 20 MG PO SCH (08:11)
[2017-12-02] MEDS: BuPROPion XL* 300 MG TAB.XL PO SCH (08:11)
[2017-12-02] MEDS ORDERED: Furosemide TAB* 20 MG PO SCH (09:00)
[2017-12-02 12:43] VITALS: BP 135/76
--- NOTE | 2017-12-03 12:43 | DS ---
DISCHARGE SUMMARY: DATE OF ADMISSION: 11/27/17 DATE OF DISCHARGE: 12/02/17 ADMITTING PROVIDER: Laron Bergman MD PRIMARY CARE PHYSICIAN: Nurse practitionerRafiq of [place], [place]. ATTENDING PHYSICIAN: Dr. Richard Vernon. CHIEF COMPLAINT: Shortness of breath, chest pressure, wheeze. PRINCIPAL DIAGNOSES: 1. Sepsis. 2. Acute hypoxic respiratory failure. 3. Pneumonia. 4. Volume overload likely secondary to some diastolic dysfunction. 5. Aggressive IV fluid resuscitation at outside hospital and here. HISTORY OF PRESENT ILLNESS AND HOSPITAL COURSE: Hiral Wilson is a 42-year-old female with past medical history of super morbid obesity, obstructive sleep apnea on CPAP 15 mmHg, GERD, depression, recurrent urinary tract infections with recent obstructing left ureteral stone 8 mm, for which she presented to [facility] on 11/25/17, had a stent placed in the left ureter on 11/26. She was discharged with 3 days of Augmentin. She had been septic there with white counts as high as 20. There was some difficulty with fluoroscopy not working during the stenting procedure, but apparently stent placement was confirmed with [facility]. She reports that even when she was walking to the parking lot from discharge, she felt short of breath and she developed progressive wheeze and then chest and trunk soreness/tightness and had a dry cough. She had initial leukocytosis here 14.1, was tachycardic to the one teens. She had preserved blood pressures and tachypneic to the mid 20s to as high as 35. She was requiring 4 L of oxygen on presentation. Baseline is none. She had an initial D-dimer that was 529. Initial chest x-ray demonstrated mild vascular congestion and the CTA of the chest demonstrated patchy areas of airspace disease in the lung and bases bilaterally consistent with bilateral pneumonia. She was started on vancomycin and Zosyn with concern for healthcare-associated pneumonia given the recent stay at [facility]. Of note, she had also been on Zosyn there throughout admission and of note had not taken any of the Augmentin that she had been discharged upon. She had continued leukocytosis throughout the admission for which was given Solu-Medrol 125 mg in the emergency room, albuterol nebs and aggressive IV fluid resuscitation. Also started vancomycin. She felt improved, but her course waxed and waned frankly, she developed again some chest tightness and was noted to still be acutely hypoxic for several days in the hospital. Her vancomycin was stopped after were negative and the Zosyn was transitioned to ceftriaxone and then addition of azithromycin when sputum culture was able to be obtained and at that time demonstrated 3+ gram-positive cocci in chains resembling strep and the culture ultimately grew 2+ normal scott. She had a repeat chest x-ray on 11/30/17, which showed still interval appearance of multifocal patchy densities concerning for infectious etiology. Radiological differential included septic emboli or ultimately pulmonary edema versus early ARDS. She did have a BNP. She was noted to have lower extremity edema and the BNP was modestly elevated to 111. Of note, her BMI is 65. She was given small doses of Lasix and as a result put out a lot of urine on 11/30/17 and 12/01/17, approximately 4 L _ each day. She had echocardiogram on 11/30/17, which showed preserved ejection fraction, some trace pulmonic regurgitation, trace tricuspid regurgitation, mild mitral regurgitation. Study was technically limited due to body habitus. No vegetations involving the mitral or aortic valve were seen. The pulmonic and tricuspid valves were not well visualized. The assessment of the diastolic dysfunction was nondiagnostic. She had consultation with Hunter Mclaughlin of Infectious Disease and Demetrice Mayers of Pulmonology on 12/01/17 and course was continued. She by the day of discharge, was without oxygen requirement and able to walk the halls with some modest desaturations to high 80s (88%) for a few seconds, but did not qualify for any home oxygen use. She is being discharged with a few more days of p.o. Lasix and 5 total day course of Augmentin per Infectious Disease recommendation. DISCHARGE MEDICATIONS: Include: 1. Augmentin 875 mg p.o. b.i.d. for a 5-day course (of note she already has 3 days at home, 4 additional tabs are being provided now). 2. Bupropion 300 mg p.o. daily. 3. Citalopram 20 mg p.o. daily. 4. Lasix 20 mg p.o. daily for 4 tabs (new). 5. Metformin 500 mg p.o. b.i.d. 6. Sprintec (norgestimate-ethinyl estradiol) tab p.o. daily. 7. Prilosec 20 mg p.o. daily. DISCHARGE DIET: Heart healthy, carbohydrate consistent. ACTIVITY: No restrictions. FOLLOWUP: Please follow up with Sommer Conroy. Appointment has been arranged for 12/04/17 at 9:20 a.m. She should have repeat CT scan of her chest per Dr. Mayers's recommendations around 8 weeks' time. TIME SPENT ON DISCHARGE: 35 minutes. [id number]/[facility] #: [id number] [facility] CENTERFacundo
== END 2017-12-02 13:00 | disposition home or self-care (01) | DRG 871 ==
LOC: ED 16:35 → MED 22:21 → OBSVTOIN 11-28 15:45
PROVIDERS: ADMIT Hospitalist; ATTEND Internal Medicine
DX: A41.9 Sepsis, unspecified organism (principal); J18.9 Pneumonia, unspecified organism; J96.01 Acute respiratory failure with hypoxia; I50.31 Acute diastolic (congestive) heart failure; Z68.44 Body mass index [BMI] 60.0-69.9, adult; N20.1 Calculus of ureter; E66.2 Morbid (severe) obesity with alveolar hypoventilation; G47.33 Obstructive sleep apnea (adult) (pediatric); K21.9 Gastro-esophageal reflux disease without esophagitis; F32.9 Major depressive disorder, single episode, unspecified; E11.9 Type 2 diabetes mellitus without complications; E87.70 Fluid overload, unspecified; J45.909 Unspecified asthma, uncomplicated; Z79.84 Long term (current) use of oral hypoglycemic drugs; Z79.899 Other long term (current) drug therapy; Z88.8 Allergy status to other drugs, medicaments and biological substances; Z82.5 Family history of asthma and other chronic lower respiratory diseases; Z82.49 Family history of ischemic heart disease and other diseases of the circulatory system
CPT/HCPCS: 36415; 71046; 71275; 80048; 80053; 83605; 83735; 83880; 84145; 84484; 85025; 85379; 85384; 85610; 86140; 87040; 87070; 87086; 87205; 87502; 87641; 87899; 93005; 93306; 93970; 94640; 94760; 99284; A9270-GY; C8929; J0456; J0696; J1940; J2543; J2920; J2930; J3370; J3475; J7512; Q9967

== ENCOUNTER 2017-12-06 06:34 | Emergency (ER) | payer OTHER ==
[2017-12-06 07:47] LABS: ABS Basophils 0.1 10^3/ul (0-0.2); ABS Eosinophils 0.2 10^3/ul (0-0.6); ABS Lymphocytes 3.2 10^3/ul (1.0-4.8); ABS Monocytes 0.5 10^3/ul (0-0.8); ABS Neutrophils 7.5 10^3/ul (1.5-7.7); ABS Nucleated RBC 0 10^3/ul; Eosinophil % 1.4 % (0-6); Hematocrit 36 % (35-47); Hemoglobin 11.7 g/dl (12.0-16.0); Mean Corpuscular HGB Conc 32 g/dl (31-36); Mean Corpuscular Hemoglobin 25 pg (27-31); Mean Corpuscular Volume 78 fL (80-97); Mean Platelet Volume 7 um3 (7.4-10.4); Nucleated Red Blood Cells % 0; Platelet Count 353 10^3/ul (150-450); Red Blood Count 4.63 10^6/ul (4.0-5.4); Red Cell Distribution Width 15 % (10.5-15); White Blood Count 11.4 10^3/ul (3.5-10.8)
[2017-12-06 07:55] LABS: INR 0.94 (0.77-1.02)
[2017-12-06 08:03] LABS: EGFR Non-African American 89.7 (>60)
--- NOTE | 2017-12-06 08:39 | RAD ---
CLINICAL HISTORY: Hematuria and left flank pain status post left ureteral stent November 26, 2017. COMPARISON: CTA chest November 27, 2017 TECHNIQUE: Noncontrast CT examination of the abdomen and pelvis from the lung bases through the initial tuberosities. FINDINGS: Images are limited due to the patient's extremely large body habitus causing streak artifact. VISUALIZED LUNG BASES: At the right lower lobe (image 13) there is a 7 mm pulmonary nodule. There are mild diffuse groundglass opacifications. There is no pleural effusion. ABDOMEN AND PELVIS: Evaluation of the solid organs and vasculature is limited without intravenous contrast. The liver, spleen, pancreas and adrenal glands are grossly normal in appearance. The gallbladder is normal. There is an anatomically aligned left ureteral stent kidneys are normal in appearance without focal mass, calcification or signs of hydronephrosis. Evaluation of the gastrointestinal tract is limited without oral contrast. The small and large bowel are not distended.The patient's normal appendix is identified in the right lower quadrant with gas in the lumen (coronal image 59). There is no gross retroperitoneal or mesenteric lymphadenopathy. The pelvic viscera is normal in appearance. The abdominal aorta and iliac arteries are normal in course and diameter. Degenerative changes include multilevel loss of intervertebral disc height involving the lower thoracic and lumbar spine.There are no sinister bone lesions. IMPRESSION: 1. Anatomic alignment of a left ureteral stent without signs of obstructive uropathy. 2. There is an 8 mm pulmonary nodule at the right lower lung unchanged since the November 27, 2017 CTA of the chest. This can be followed up according to the Fleischner Society criteria. 3. Mild groundglass opacifications of the bilateral visualized lungs which could be seen in the setting of pulmonary edema, pneumonitis or early ARDS according to the clinical presentation.
[2017-12-06 08:43] VITALS: BP 141/66
[2017-12-06 08:43] LABS: Urine Appearance Cloudy; Urine Blood 3+ (Negative); Urine Color Amber; Urine Ketones Negative (Negative); Urine Protein 2+(100 mg/dL) (Negative); Urine Specific Gravity 1.021 (1.010-1.030); Urine Urobilinogen Negative (Negative)
[2017-12-06] MEDS ORDERED: Phenazopyridine TAB* 100 MG PO ONE (09:11)
[2017-12-06] MEDS ORDERED: Nitrofurantoin Macrocrystals* 100 MG CAP PO ONE (09:11)
--- NOTE | 2017-12-06 09:28 | ED ---
Tanna Ace Elizabeth, scribed for Shane Rodriguez MD on 12/06/17 at 0735 . GI/ HPI - HPI Summary HPI Summary: The patient is a 42 year old female complaining of intermittent lower left flank pain that started 1 day ago. The patient additionally complains of hematuria and dysuria. The patient had a stent placed in left ureter 4 days ago. She was previously diagnosed with pneumonia, sepsis, and an 8 mm kidney stone earlier this week. She has been taking Augmentin. - History of Current Complaint Chief Complaint: EDFlankPain Time Seen by Provider: 12/06/17 07:14 Stated Complaint: BLOOD IN URINE Hx Obtained From: Patient Onset/Duration: Started Days Ago, Still Present, Worse Since - worse since 1 day ago Timing: Intermittent, Lasting Days Current Severity: Mild Pain Intensity: 0 Location of Pain: Flank - lower left flank Pain Characteristics: Aching Associated Signs and Symptoms: Positive: Hematuria, Dysuria, Flank Pain - lower left flank pain - Additional Pertinent History Primary Care Physician: MARY - Allergy/Home Medications Allergies/Adverse Reactions: Allergies Allergy/AdvReac Type Severity Reaction Status Date / Time ciprofloxacin [From Ciloxan] Allergy Unknown Unknown Verified 12/06/17 06:41 Reaction Details PMH/Surg Hx/FS Hx/Imm Hx Endocrine/Hematology History: Reports: Hx Diabetes Cardiovascular History: Denies: Hx Hypertension Respiratory History: Reports: Hx Chronic Bronchitis, Hx Sleep Apnea GI History: Reports: Hx Gastroesophageal Reflux Disease History: Reports: Hx Kidney Infection, Hx Kidney Stones Denies: Hx Renal Disease Sensory History: Reports: Hx Vision Problem - Lasix Denies: Hx Contacts or Glasses, Hx Hearing Aid Opthamlomology History: Reports: Hx Vision Problem - Lasix Denies: Hx Contacts or Glasses Psychiatric History: Reports: Hx Anxiety, Hx Depression - Surgical History Surgery Procedure, Year, and Place: Lithotripsy 8 years ago; Lasik, uretral stent placement 11/26/17 Infectious Disease History: No Infectious Disease History: Denies: Traveled Outside the [place] in Last 30 Days - Family History Known Family History: Positive: Diabetes, Other - cancer, thyroid issues, blood clots - Social History Alcohol Use: None Substance Use Type: Reports: None Smoking Status (MU): Never Smoked Tobacco Review of Systems Negative: Epistaxis Positive: dysuria, flank pain - left lower flank pain, hematuria All Other Systems Reviewed And Are Negative: Yes Physical Exam - Summary Physical Exam Summary: General: well-appearing, no pain distress, Skin: warm, color reflects adequate perfusion, dry Head: normal Eyes: EOMI, DONALDO ENT: normal Neck: supple, nontender Respiratory: CTA, breath sounds present Cardiovascular: RRR Abdomen: soft, nontender Bowel: present Musculoskeletal: normal, strength/ROM intact Neurological: normal, sensory/motor intact, A&O x3 Psychological: affect/mood appropriate Triage Information Reviewed: Yes Vital Signs On Initial Exam: Initial Vitals Temp Pulse Resp BP Pulse Ox 97.1 F 91 16 132/80 100 12/06/17 06:35 12/06/17 06:35 12/06/17 06:35 12/06/17 06:35 12/06/17 06:35 Vital Signs Reviewed: Yes Diagnostics - Vital Signs Vital Signs Temp Pulse Resp BP Pulse Ox 12/06/17 07:14 98.1 F 85 16 122/69 99 12/06/17 06:35 97.1 F 91 16 132/80 100 - Laboratory Lab Results: Lab Results 12/06/17 12/06/17 12/06/17 Range/Units 07:38 07:38 07:38 WBC 11.4 H (3.5-10.8) 10^3/ul RBC 4.63 (4.0-5.4) 10^6/ul Hgb 11.7 L (12.0-16.0) g/dl Hct 36 (35-47) % MCV 78 L (80-97) fL MCH 25 L (27-31) pg MCHC 32 (31-36) g/dl RDW 15 (10.5-15) % Plt Count 353 (150-450) 10^3/ul MPV 7 L (7.4-10.4) um3 Neut % (Auto) 65.4 (38-83) % Lymph % (Auto) 28.0 (25-47) % [place] % (Auto) 4.7 (0-7) % Eos % (Auto) 1.4 (0-6) % Baso % (Auto) 0.5 (0-2) % Absolute Neuts (auto) 7.5 (1.5-7.7) 10^3/ul Absolute Lymphs (auto) 3.2 (1.0-4.8) 10^3/ul Absolute Monos (auto) 0.5 (0-0.8) 10^3/ul Absolute Eos (auto) 0.2 (0-0.6) 10^3/ul Absolute Basos (auto) 0.1 (0-0.2) 10^3/ul Absolute Nucleated RBC 0 10^3/ul Nucleated RBC % 0 INR (Anticoag Therapy) 0.94 (0.77-1.02) APTT 30.3 (26.0-36.3) seconds Sodium 134 (133-145) mmol/L Potassium 3.8 (3.5-5.0) mmol/L Chloride 101 (101-111) mmol/L Carbon Dioxide 24 (22-32) mmol/L Anion Gap 9 (2-11) mmol/L BUN 12 (6-24) mg/dL Creatinine 0.72 (0.51-0.95) mg/dL Est GFR ( Amer) 115.4 (>60) Est GFR (Non-Af Amer) 89.7 (>60) BUN/Creatinine Ratio 16.7 (8-20) Glucose 125 H (70-100) mg/dL Lactic Acid (0.5-2.0) mmol/L Calcium 9.1 (8.6-10.3) mg/dL Total Bilirubin 0.30 (0.2-1.0) mg/dL AST 8 L (13-39) U/L ALT 13 (7-52) U/L Alkaline Phosphatase 58 (34-104) U/L C-Reactive Protein 32.21 H (< 5.00) mg/L Total Protein 6.9 (6.4-8.9) g/dL Albumin 3.7 (3.2-5.2) g/dL Globulin 3.2 (2-4) g/dL Albumin/Globulin Ratio 1.2 (1-3) Beta HCG, Quant < 0.60 mIU/mL Urine Color Urine Appearance Urine pH (5-9) Ur Specific [place] (1.010-1.030) Urine Protein (Negative) Urine Ketones (Negative) Urine Blood (Negative) Urine Nitrate (Negative) Urine Bilirubin (Negative) Urine Urobilinogen (Negative) Ur Leukocyte Esterase (Negative) Urine WBC (Auto) (Absent) Urine RBC (Auto) (Absent) Ur Squamous Epith Cells (Absent) Urine Bacteria (Absent) Urine Glucose (Negative) 12/06/17 12/06/17 Range/Units 07:38 08:20 WBC (3.5-10.8) 10^3/ul RBC (4.0-5.4) 10^6/ul Hgb (12.0-16.0) g/dl Hct (35-47) % MCV (80-97) fL MCH (27-31) pg MCHC (31-36) g/dl RDW (10.5-15) % Plt Count (150-450) 10^3/ul MPV (7.4-10.4) um3 Neut % (Auto) (38-83) % Lymph % (Auto) (25-47) % [place] % (Auto) (0-7) % Eos % (Auto) (0-6) % Baso % (Auto) (0-2) % Absolute Neuts (auto) (1.5-7.7) 10^3/ul Absolute Lymphs (auto) (1.0-4.8) 10^3/ul Absolute Monos (auto) (0-0.8) 10^3/ul Absolute Eos (auto) (0-0.6) 10^3/ul Absolute Basos (auto) (0-0.2) 10^3/ul Absolute Nucleated RBC 10^3/ul Nucleated RBC % INR (Anticoag Therapy) (0.77-1.02) APTT (26.0-36.3) seconds Sodium (133-145) mmol/L Potassium (3.5-5.0) mmol/L Chloride (101-111) mmol/L Carbon Dioxide (22-32) mmol/L Anion Gap (2-11) mmol/L BUN (6-24) mg/dL Creatinine (0.51-0.95) mg/dL Est GFR ( Amer) (>60) Est GFR (Non-Af Amer) (>60) BUN/Creatinine Ratio (8-20) Glucose (70-100) mg/dL Lactic Acid 1.5 (0.5-2.0) mmol/L Calcium (8.6-10.3) mg/dL Total Bilirubin (0.2-1.0) mg/dL AST (13-39) U/L ALT (7-52) U/L Alkaline Phosphatase (34-104) U/L C-Reactive Protein (< 5.00) mg/L Total Protein (6.4-8.9) g/dL Albumin (3.2-5.2) g/dL Globulin (2-4) g/dL Albumin/Globulin Ratio (1-3) Beta HCG, Quant mIU/mL Urine Color Kaitlynn Urine Appearance Cloudy Urine pH 6.0 (5-9) Ur Specific [place] 1.021 (1.010-1.030) Urine Protein 2+(100 mg/dl) A (Negative) Urine Ketones Negative (Negative) Urine Blood 3+ A (Negative) Urine Nitrate Negative (Negative) Urine Bilirubin Negative (Negative) Urine Urobilinogen Negative (Negative) Ur Leukocyte Esterase Negative (Negative) Urine WBC (Auto) 2+(11-20/hpf) A (Absent) Urine RBC (Auto) 3+(>10/hpf) A (Absent) Ur Squamous Epith Cells Present A (Absent) Urine Bacteria Absent (Absent) Urine Glucose Negative (Negative) Result Diagrams: 12/06/17 07:38 12/06/17 07:38 Lab Statement: Any lab studies that have been ordered have been reviewed, and results considered in the medical decision making process. - CT Abd/Pelvis CT Interpretation: Positive (See Comments) - IMPRESSION: 1. Anatomic alignment of a left ureteral stent without signs of obstructive uropathy. 2. There is an 8 mm pulmonary nodule at the right lower lung unchanged since the November 27, 2017 CTA of the chest. This can be followed up according to the Fleischner Society criteria. 3. Mild groundglass opacifications of the bilateral visualized lungs which could be seen in the setting of pulmonary edema, pneumonitis or early ARDS according to the clinical presentation. Physician has reviewed this report and agrees. CT Interpretation Completed By: Radiologist Re-Evaluation - Re-Evaluation First Eval Re-Evaluation Time: 09:05 Change: Unchanged Comment: Discussed results of CT with patient GIGU Course/Dx - Course Course Of Treatment: DISCUSSED RESULTS WITH PATIENT. WILL TREAT WITH BACTRIM AND PYRIDIUM. F/U WITH [facility] THIS WEEK. RETURN TO ED IF WORSE. - Diagnoses Provider Diagnoses: Hematuria, UTI (urinary tract infection), Flank pain Discharge - Discharge Plan Condition: Stable Disposition: HOME Prescriptions: Nitrofurantoin Macrocrystals* [Macrodantin*] 100 mg PO BID #14 cap Phenazopyridine 200 mg (NF) [Pyridium 200 MG tab *] 200 mg PO TID PRN #10 tab PRN Reason: Pain Patient Education Materials: Urinary Tract Infection in Women (ED), Hematuria ( ED) Referrals: Sommer Conroy NP [Primary Care Provider] - Additional Instructions: FOLLOW UP WITH YOUR UROLOGIST. CALL TOMORROW TO ARRANGE FOLLOW UP. RETURN TO THE EMERGENCY DEPARTMENT FOR ANY WORSENING OF YOUR CONDITION; PAIN, FEVER, YOU FEEL ILL, YOU CANNOT URINATE OR QUESTIONS OR CONCERNS. YOUR BLOOD PRESSURE WAS ELEVATED TODAY; FOLLOW UP WITH YOUR PRIMARY CARE DOCTOR WITHIN ONE WEEK. The documentation as recorded by the Tanna dow Elizabeth accurately reflects the service I personally performed and the decisions made by me, Shane Rodriguez MD.
== END 2017-12-06 10:21 | disposition home or self-care (01) ==
LOC: ED 06:34
DX: N39.0 Urinary tract infection, site not specified (principal); R31.9 Hematuria, unspecified; Z87.442 Personal history of urinary calculi; Z88.3 Allergy status to other anti-infective agents
CPT/HCPCS: 36415; 74176; 80053; 81003; 81015; 83605; 84702; 85025; 85610; 85730; 86140; 87086; 99282; A9270-GY

== ENCOUNTER 2017-12-07 22:33 | Emergency (ER) | payer OTHER ==
[2017-12-07] MEDS ORDERED: NS 0.9% 1000 ML* 2,000 ML IV ONE (23:39)
[2017-12-08 00:28] LABS: ABS Basophils 0.1 10^3/ul (0-0.2); ABS Eosinophils 0.2 10^3/ul (0-0.6); ABS Monocytes 0.8 10^3/ul (0-0.8); ABS Neutrophils 6.8 10^3/ul (1.5-7.7); ABS Nucleated RBC 0 10^3/ul; Eosinophil % 1.7 % (0-6); Hematocrit 35 % (35-47); Hemoglobin 11.6 g/dl (12.0-16.0); Lymphocyte % 33.3 % (25-47); Mean Corpuscular HGB Conc 33 g/dl (31-36); Mean Corpuscular Hemoglobin 26 pg (27-31); Mean Corpuscular Volume 78 fL (80-97); Mean Platelet Volume 8 um3 (7.4-10.4); Nucleated Red Blood Cells % 0; Platelet Count 338 10^3/ul (150-450); Red Blood Count 4.51 10^6/ul (4.0-5.4); Red Cell Distribution Width 15 % (10.5-15); White Blood Count 11.9 10^3/ul (3.5-10.8)
[2017-12-08 00:30] LABS: EGFR Non-African American 94.2 (>60)
[2017-12-08] MEDS ORDERED: Phenazopyridine TAB* 100 MG PO ONE ×2 (01:20→01:23)
--- NOTE | 2017-12-08 01:29 | ED ---
Cristiano Ace Thomas, scribed for Rafael Wiley MD on 12/07/17 at 2356 . GI/ HPI - HPI Summary HPI Summary: The patient is a 42 year old female who presents to the emergency room with inability to urinate and urinary urgency since today at 15:00. She has a stent on her left ureter and an 8 mm stone. She is in the process of scheduling a lithotripsy and stent removal. She was evaluated at [facility] yesterday for hematuria. She is now on two antibiotics. She denies back pain. - History of Current Complaint Chief Complaint: EDUrogenitalProblems Time Seen by Provider: 12/07/17 23:16 Stated Complaint: UNABLE TO URINATE Hx Obtained From: Patient Onset/Duration: Started Hours Ago, Still Present Timing: Constant Severity: Moderate Current Severity: Moderate Pain Intensity: 7 Pain Characteristics: Other: - Urgency Associated Signs and Symptoms: Positive: Other: - Inability to urinate, urinary urgency; NEGATIVE: back pain Alleviating Factor(s): Nothing - Additional Pertinent History Primary Care Physician: MARY - Allergy/Home Medications Allergies/Adverse Reactions: Allergies Allergy/AdvReac Type Severity Reaction Status Date / Time ciprofloxacin [From Ciloxan] Allergy Unknown Unknown Verified 12/07/17 22:49 Reaction Details PMH/Surg Hx/FS Hx/Imm Hx Endocrine/Hematology History: Reports: Hx Diabetes Cardiovascular History: Denies: Hx Hypertension Respiratory History: Reports: Hx Chronic Bronchitis, Hx Sleep Apnea GI History: Reports: Hx Gastroesophageal Reflux Disease History: Reports: Hx Kidney Infection, Hx Kidney Stones Denies: Hx Renal Disease Sensory History: Reports: Hx Vision Problem - Lasix Denies: Hx Contacts or Glasses, Hx Hearing Aid Opthamlomology History: Reports: Hx Vision Problem - Lasix Denies: Hx Contacts or Glasses Psychiatric History: Reports: Hx Anxiety, Hx Depression - Surgical History Surgery Procedure, Year, and Place: Lithotripsy 8 years ago; Lasik, uretral stent placement 11/26/17 Infectious Disease History: No Infectious Disease History: Denies: Traveled Outside the [place] in Last 30 Days - Family History Known Family History: Positive: Diabetes, Other - cancer, thyroid issues, blood clots - Social History Alcohol Use: None Substance Use Type: Reports: None Smoking Status (MU): Never Smoked Tobacco Review of Systems Negative: Fever Positive: urgency, other - Inability to void Negative: Other - back pain All Other Systems Reviewed And Are Negative: Yes Physical Exam - Summary Physical Exam Summary: VITAL SIGNS: Reviewed. GENERAL: Patient is a morbidly obese female who is lying comfortable in the stretcher. Patient is not in any acute respiratory distress. HEAD AND FACE: No signs of trauma. No ecchymosis, hematomas or skull depressions. No sinus tenderness. EYES: PERRLA, EOMI x 2, No injected conjunctiva, no nystagmus. EARS: Hearing grossly intact. Ear canals and tympanic membranes are within normal limits. MOUTH: Oropharynx within normal limits. NECK: Supple, trachea is midline, no adenopathy, no JVD, no carotid bruit, no c- spine tenderness, neck with full ROM. CHEST: Symmetric, no tenderness at palpation LUNGS: Clear to auscultation bilaterally. No wheezing or crackles. CVS: Regular rate and rhythm, S1 and S2 present, no murmurs or gallops appreciated. ABDOMEN: Soft, non-tender. Morbidly obese. No signs of distention. No rebound no guarding, and no masses palpated. Bowel sounds are normal. EXTREMITIES: FROM in all major joints, no edema, no cyanosis or clubbing. NEURO: Alert and oriented x 3. No acute neurological deficits. Speech is normal and follows commands. SKIN: Dry and warm Triage Information Reviewed: Yes Vital Signs On Initial Exam: Initial Vitals Temp Pulse Resp BP Pulse Ox 97.3 F 91 18 123/79 99 12/07/17 22:41 12/07/17 22:41 12/07/17 22:41 12/07/17 22:41 12/07/17 22:41 Vital Signs Reviewed: Yes Diagnostics - Vital Signs Vital Signs Temp Pulse Resp BP Pulse Ox 12/07/17 22:41 97.3 F 91 18 123/79 99 - Laboratory Result Diagrams: 12/07/17 23:58 12/07/17 23:58 Lab Statement: Any lab studies that have been ordered have been reviewed, and results considered in the medical decision making process. Re-Evaluation - Re-Evaluation First Eval Re-Evaluation Time: 01:23 Comment: Results discussed. Patient will be discharged. GIGU Course/Dx - Course Assessment/Plan: The patient is a 42 year old female who presents to the emergency room with inability to urinate and urinary urgency since today at 15: 00. She has a stent on her left ureter and an 8 mm stone. In the ED course the patient was given IV fluids. Bloodwork and urinalysis were obtained. The patient is diagnosed with dysuria and UTI. She will follow up at her previously scheduled appointment on 12/08/17 with her urologist. - Diagnoses Provider Diagnoses: UTI (urinary tract infection), Dysuria Discharge - Discharge Plan Condition: Stable Disposition: HOME Patient Education Materials: Urinary Tract Infection in Women (ED), Dysuria (ED ) Referrals: Cleveland Jefferson MD [Medical Doctor] - If Needed Mushtaq Chaudhari MD [Medical Doctor] - If Needed Additional Instructions: Follow up with your previously scheduled appointment on 12/08/17 with your urologist. I have also given you a referral to the [facility] [place] if needed. Return to the emergency department for any new or worsening symptoms. The documentation as recorded by the Cristiano dow Thomas accurately reflects the service I personally performed and the decisions made by me, Rafael Wiley MD.
[2017-12-08 01:48] LABS: Urine Appearance Cloudy; Urine Blood 3+ (Negative); Urine Color Amber; Urine Ketones Negative (Negative); Urine Protein 2+(100 mg/dL) (Negative); Urine Specific Gravity 1.026 (1.010-1.030); Urine Urobilinogen Negative (Negative)
[2017-12-08 01:52] VITALS: BP 138/62
== END 2017-12-08 01:52 | disposition home or self-care (01) ==
LOC: ED 22:33
DX: N39.0 Urinary tract infection, site not specified (principal); R30.0 Dysuria; E11.9 Type 2 diabetes mellitus without complications; Z88.1 Allergy status to other antibiotic agents; Z79.84 Long term (current) use of oral hypoglycemic drugs; K21.9 Gastro-esophageal reflux disease without esophagitis; Z87.442 Personal history of urinary calculi; F41.9 Anxiety disorder, unspecified; F32.9 Major depressive disorder, single episode, unspecified
CPT/HCPCS: 36415; 80053; 81003; 81015; 83735; 85025; 87086; 96360; 99283; A9270-GY

== ENCOUNTER 2018-01-05 22:12 | Emergency (ER) | payer OTHER ==
[2018-01-05] MEDS ORDERED: Metoclopramide IV* 5 MG/ML 2 ML VIAL IV ONE (23:23)
[2018-01-05] MEDS ORDERED: Ketorolac INJ* 30 MG/ML 1 ML VIAL IV ONE (23:23)
[2018-01-05] MEDS ORDERED: HYDROmorphone INJ* 2 MG/ML CARPUJECT SYRINGE IV SLOW PU ONE (23:23)
[2018-01-05] MEDS ORDERED: NS 0.9% 1000 ML* 1,000 ML IV ONE (23:25)
[2018-01-06 00:57] LABS: ABS Basophils 0.1 10^3/ul (0-0.2); ABS Eosinophils 0.1 10^3/ul (0-0.6); ABS Lymphocytes 1.8 10^3/ul (1.0-4.8); ABS Monocytes 0.9 10^3/ul (0-0.8); ABS Neutrophils 10.9 10^3/ul (1.5-7.7); ABS Nucleated RBC 0 10^3/ul; Hematocrit 34 % (35-47); Hemoglobin 10.9 g/dl (12.0-16.0); Mean Corpuscular HGB Conc 32 g/dl (31-36); Mean Corpuscular Hemoglobin 25 pg (27-31); Mean Corpuscular Volume 77 fL (80-97); Mean Platelet Volume 7.5 um3 (7.4-10.4); Nucleated Red Blood Cells % 0; Platelet Count 297 10^3/ul (150-450); Red Blood Count 4.37 10^6/ul (4.0-5.4); Red Cell Distribution Width 15 % (10.5-15); White Blood Count 13.9 10^3/ul (3.5-10.8)
[2018-01-06] MEDS ORDERED: NS 0.9% 1000 ML* 1,000 ML IV ONE (01:14)
[2018-01-06] MEDS ORDERED: Tamsulosin CAP* 0.4 MG PO ONE (01:15)
[2018-01-06 03:10] LABS: Urine Appearance Cloudy; Urine Blood Negative (Negative); Urine Color Yellow; Urine Ketones Negative (Negative); Urine Protein Negative (Negative); Urine Specific Gravity 1.029 (1.010-1.030); Urine Urobilinogen Negative (Negative)
[2018-01-06] MEDS ORDERED: Levofloxacin TAB* 500 MG PO ONE (03:34)
[2018-01-06 03:52] VITALS: BP 134/77
--- NOTE | 2018-01-06 03:53 | ED ---
Cristiano Ace Thomas, scribed for Rafael Wiley MD on 01/05/18 at 2320 . Abdominal Pain/Female - HPI Summary HPI Summary: The patient is a 42 year old female complaining of left flank pain, nausea, and vomiting. Several weeks ago, the patient had a ureter stent placed and removed, and after this stones were blasted. Another ureter stent was placed three weeks ago, and it was removed today at 15:00. The patients left flank pain began today at 17:00. She denies fever and hematuria. - History of Current Complaint Chief Complaint: EDFlankPain Stated Complaint: BACK PAIN Time Seen by Provider: 01/05/18 23:12 Hx Obtained From: Patient Onset/Duration: Lasting Hours, Still Present Timing: Constant Severity Currently: Severe Pain Intensity: 9 Pain Scale Used: 0-10 Numeric Location: Flank - left Aggravating Factor(s): Nothing Alleviating Factor(s): Nothing Associated Signs and Symptoms: Positive: Nausea, Vomiting. Negative: Fever, Other: - hematuria Allergies/Adverse Reactions: Allergies Allergy/AdvReac Type Severity Reaction Status Date / Time ciprofloxacin [From Ciloxan] Allergy Unknown Unknown Verified 12/07/17 22:49 Reaction Details PMH/Surg Hx/FS Hx/Imm Hx Endocrine/Hematology History: Reports: Hx Diabetes Cardiovascular History: Denies: Hx Hypertension Respiratory History: Reports: Hx Chronic Bronchitis, Hx Sleep Apnea GI History: Reports: Hx Gastroesophageal Reflux Disease History: Reports: Hx Kidney Infection, Hx Kidney Stones Denies: Hx Renal Disease Sensory History: Reports: Hx Vision Problem - Lasix Denies: Hx Contacts or Glasses, Hx Hearing Aid Opthamlomology History: Reports: Hx Vision Problem - Lasix Denies: Hx Contacts or Glasses Psychiatric History: Reports: Hx Anxiety, Hx Depression - Surgical History Surgery Procedure, Year, and Place: Lithotripsy 8 years ago; Lasik, uretral stent placement 11/26/17 Infectious Disease History: No Infectious Disease History: Denies: Traveled Outside the [place] in Last 30 Days - Family History Known Family History: Positive: Diabetes, Other - cancer, thyroid issues, blood clots - Social History Alcohol Use: None Substance Use Type: Reports: None Smoking Status (MU): Never Smoked Tobacco Review of Systems Negative: Fever Positive: Vomiting, Nausea Negative: hematuria All Other Systems Reviewed And Are Negative: Yes Physical Exam - Summary Physical Exam Summary: VITAL SIGNS: Reviewed. GENERAL: Patient is a morbidly obese female who is lying comfortable in the stretcher. Patient is not in any acute respiratory distress. HEAD AND FACE: No signs of trauma. No ecchymosis, hematomas or skull depressions. No sinus tenderness. EYES: PERRLA, EOMI x 2, No injected conjunctiva, no nystagmus. EARS: Hearing grossly intact. Ear canals and tympanic membranes are within normal limits. MOUTH: Oropharynx within normal limits. NECK: Supple, trachea is midline, no adenopathy, no JVD, no carotid bruit, no c- spine tenderness, neck with full ROM. CHEST: Symmetric, no tenderness at palpation LUNGS: Clear to auscultation bilaterally. No wheezing or crackles. CVS: Regular rate and rhythm, S1 and S2 present, no murmurs or gallops appreciated. ABDOMEN: Soft, non-tender. No signs of distention. No rebound no guarding, and no masses palpated. Bowel sounds are normal. BACK: She has left CVA tenderness. EXTREMITIES: FROM in all major joints, no edema, no cyanosis or clubbing. NEURO: Alert and oriented x 3. No acute neurological deficits. Speech is normal and follows commands. SKIN: Dry and warm Triage Information Reviewed: Yes Vital Signs On Initial Exam: Initial Vitals Temp Pulse Resp BP Pulse Ox 97.8 F 97 22 110/93 97 01/05/18 22:24 01/05/18 22:24 01/05/18 22:24 01/05/18 22:24 01/05/18 22:24 Vital Signs Reviewed: Yes Diagnostics - Vital Signs Vital Signs Temp Pulse Resp BP Pulse Ox 01/05/18 22:24 97.8 F 97 22 110/93 97 - Laboratory Result Diagrams: 01/06/18 00:41 01/06/18 00:41 Lab Statement: Any lab studies that have been ordered have been reviewed, and results considered in the medical decision making process. - CT CT Abdomen/Pelvis CT Interpretation: Positive (See Comments) - IMPRESSION: Since the December 06 scan , there has been removal of a left double-J ureteral stent. However, there is an 8.3 mm x 3.9 mm stone in the distal third of the left ureter. This stone is obstructing and causing moderate left hydronephrosis/hydroureter. No right urinary tract stone or obstruction. No acute abnormality of bowel. No acute abnormalities of the gallbladder, spleen, pancreas, or renal glands. Liver is enlarged. Osseous structures are intact". Dr. Wiley has reviewed this report. CT Interpretation Completed By: Radiologist Re-Evaluation - Re-Evaluation First Eval Re-Evaluation Time: 03:38 Comment: Results discussed. Patient will be discharged. Abdominal Pain Fem Course/Dx - Course Course Of Treatment: The patient is a 42 year old female complaining of left flank pain, nausea, and vomiting. Several weeks ago, the patient had a ureter stent placed and removed, and after this stones were blasted. Another ureter stent was placed three weeks ago, and it was removed today at 15:00. The patient s left flank pain began today at 17:00. CT Abdomen Pelvis shows a 8.3 mm x 3.9 mm stone in the distal third of the left ureter. This stone is obstructing and causing moderate left hydronephrosis/hydroureter. No right urinary tract stone or obstruction. The patient is afebrile and she has no fever. Urinalysis is consistent with a UTI. The patient is diagnosed with left ureteral stone, UTI , and ureteral colic. The patient will be treated with Levaquin PO for the UTI and she is given Percocet. She was advised to call her urologist in the morning. She was instructed to strain all of her urine. - Diagnoses Provider Diagnoses: Left ureteral stone, UTI (urinary tract infection), Ureteral colic Discharge - Sign-Out/Discharge Documenting (check all that apply): Discharge - Discharge Plan Condition: Stable Disposition: HOME Prescriptions: Levofloxacin TAB* [Levaquin TAB*] 500 mg PO DAILY #7 tab oxyCODONE/Acetamin 5/325 MG* [Percocet 5/325 TAB*] 1 tab PO Q6H PRN #14 tab MDD 4 PRN Reason: Pain Tamsulosin CAP* [Flomax CAP*] 0.4 mg PO BEDTIME #7 cap Patient Education Materials: How to Strain Your Urine (ED), Renal Colic (ED), Ureteral Stones (ED), Urinary Tract Infection in Women (ED) Referrals: Cleveland Jefferson MD [Medical Doctor] - If Needed Mushtaq Chaudhari MD [Medical Doctor] - If Needed Additional Instructions: Call your urologist in the morning. I have given you referrals to Dr. Chaudhari and Dr. Jefferson if needed. Strain your urine. Return to the emergency department for any new or worsening symptoms. The documentation as recorded by the Cristiano dow Thomas accurately reflects the service I personally performed and the decisions made by me, Rafael Wiley MD.
--- NOTE | 2018-01-06 07:51 | RAD ---
CLINICAL HISTORY: Abdominal pain COMPARISON: December 06, 2017 TECHNIQUE: Multiple contiguous axial CT scans were obtained of the abdomen and pelvis, without intravenous contrast enhancement. Coronal and sagittal multiplanar reformations are submitted for review. Oral contrast was not administered. FINDINGS: The study is limited by the lack of intravenous contrast. This limits evaluation of the solid organs and vasculature. Evaluation is also limited by patient body habitus. LUNG BASES: The lung bases are clear. The right lower lobe lung nodule noted on the previous examination is not within the snuyx-cf-gcyj of the current examination. LIVER: Liver measures 20 cm in long axis. There is no appreciable focal hepatic parenchymal masses. BILE DUCTS: There is no intrahepatic or extrahepatic biliary dilatation. GALLBLADDER: The gallbladder is normal, without pericholecystic inflammatory change. PANCREAS: The pancreas is normal, without mass or ductal dilatation. SPLEEN: Normal in size and appearance. UPPER GI TRACT: Evaluation of the gastrointestinal tract is limited by incomplete gastric distention. The upper GI tract is unremarkable. SMALL BOWEL AND MESENTERY: The small bowel is normal in contour, course, and caliber. There is no obstruction or dilatation. COLON: The colon is normal in contour, course, caliber. There is no pericolonic inflammatory change. ADRENALS: Normal bilaterally. KIDNEYS: There is a 0.8 cm calculus of the distal third of the left ureter with moderate left-sided hydronephrosis and hydroureter. There has been interval removal of a left ureteral stent. BLADDER: The bladder is incompletely distended but is grossly normal. PELVIC ORGANS: The uterus and adnexa are grossly normal for technique. AORTA: The aorta is normal. IVC: Unremarkable LYMPH NODES: There is no lymphadenopathy by size criteria. ABDOMINAL WALL: There is no evidence for abdominal wall hernia. BONES AND SOFT TISSUES: Mild degenerative changes are noted most pronounced at L3-L4. OTHER: None IMPRESSION: 1. 0.8 CM LEFT URETERAL STONE WITH LEFT-SIDED HYDRONEPHROSIS. 2. HEPATOMEGALY.
== END 2018-01-06 03:52 | disposition home or self-care (01) ==
LOC: ED 22:12
DX: N20.1 Calculus of ureter (principal); N39.0 Urinary tract infection, site not specified; N23 Unspecified renal colic; R11.2 Nausea with vomiting, unspecified; R10.84 Generalized abdominal pain
CPT/HCPCS: 36415; 74176; 80053; 81003; 81015; 83735; 85025; 86140; 87086; 96374; 96375; 99284; J1170; J1885; J2765

== ENCOUNTER → 2019-08-05 07:01 | Day surgery (SDC) | payer OTHER ==
[~2019-08-05 07:01] MED LIST: Buffered Lidocaine 1% SYRIN* 1 ML/SYRINGE INTRADERM ONE; Lactated Ringers 1000 ML Bag* 1,000 ML IV SCH; Lidocaine 2% PF * 5 ML VIAL ONE; Midazolam* 1 MG/ML 2 ML VIAL (2 MG) ONE; Midazolam* 1 MG/ML 5 ML VIAL (5 MG) ONE; Ondansetron INJ* 2 MG/ML VIAL ONE; Propofol* 500 MG/50 ML BTL ONE
[2019-08-05 11:48] VITALS: BP 141/64
--- NOTE | 2019-08-05 12:27 | PRO ---
CC: Dr. Thelma Hussein; Dr. Goldy Carlin * DATE OF PROCEDURE: 08/05/2019 - [facility] INDICATION FOR PROCEDURE: GERD, prebariatric exam, and family history of colorectal cancer. PROCEDURE PERFORMED: Complete colonoscopy to the cecum and complete esophagogastroduodenoscopy with biopsies. MEDICATIONS GIVEN: Please see anesthesia record. DESCRIPTION OF PROCEDURE: After the EGD and colonoscopy procedures, including the risks, benefits, and alternatives, with the risks not limited to perforation , surgery, missed lesions, and/or were explained to the patient, written informed consent was then obtained. IV medication was given and a bite-block was placed between the teeth. The adult Olympus gastroscope was then inserted into the patient's oropharynx and into the tubular esophagus. The tubular esophagus had mild GE junction variability, less than 1 cm. This was biopsied. The scope was advanced through the lower esophageal sphincter into the stomach. Direct views were normal. On retroflexion, a very small, about 1 cm, sliding hiatal hernia was appreciated. No John erosions were evident. The scope was then advanced through the widely patent pylorus into the duodenal bulb , C-loop, and distal duodenum. There were normal in appearance. A biopsy was taken in the antrum for CLOtesting. On return to the GE junction, this was visualized at 40 cm. The scope was then removed from the patient. She tolerated the procedure well. She was then rotated and given additional IV sedation medication. A rectal exam was performed. The rectal exam was unremarkable. The adult Olympus colonoscope was then inserted into the patient' s rectum and advanced very carefully through the entirety of the colon and into the cecal base. The cecal base was carefully inspected and normal in appearance. The terminal ileal valve was identified and normal in appearance. The quality of the preparation was good. Over the next ten minutes, the scope was carefully withdrawn inspecting the mucosa. The polyps or lesions were identified. On return to the rectum, direct views were normal. On retroflexion , grade one internal hemorrhoids were appreciated. The scope was then removed from the patient. She tolerated the procedure well. She returned to the recovery room in stable condition. IMPRESSION: 1. Complete esophagogastroduodenoscopy with biopsies. 2. Mild GE junction variability less than 1 cm, biopsied. 3. Small sliding hiatal hernia, less than 1 cm. 4. Otherwise normal EGD, biopsies taken to rule out H. pylori. 5. Complete colonoscopy to the cecum. 6. Normal colonoscopy. 7. Grade one internal hemorrhoids. 8. Good prep. RECOMMENDATIONS: May proceed with bariatric surgery. Will follow-up on the results of the H. pylori testing. Repeat colonoscopy in five years' time if no evidence of Marcus's changes. Will plan on continuing her PPI. She has been refractory upon stopping the PPI in the past. Risks, benefits, and alternatives of long-term PPI therapy were discussed. [id number]/CPS #: [id number] MTDD
== END | disposition home or self-care (01) ==
LOC: OR 07:01
PROVIDERS: ATTEND Internal Medicine Gastroenterology
DX: K21.9 Gastro-esophageal reflux disease without esophagitis (principal); K44.9 Diaphragmatic hernia without obstruction or gangrene; K64.0 First degree hemorrhoids; I10 Essential (primary) hypertension; G47.33 Obstructive sleep apnea (adult) (pediatric); E66.01 Morbid (severe) obesity due to excess calories
CPT/HCPCS: 81025; 87077; 88305; J2250; J2405; J2704

== ENCOUNTER 2019-08-27 22:23 | Emergency (ER) | payer OTHER ==
--- OUTSIDE RECORDS SUMMARY | 2019-08-27 22:37 | XMS REPORT | Continuity of Care Document ---
:1975 External Reference #:[id number] Author Name Loni Leach PA-C Address [address] [place] [address] Care Team Providers Name Role Phone Goldy Carlin MD - Surgery Care Team Information Materials Intern [phone] Thelma Hussein MD Care Team Information Materials Intern [phone] Problems Active Problems Provider Date Family history of malignant neoplasm of Loni Leach PA-C Onset: 12/2018 gastrointestinal tract Morbid obesity Loni Leach PA-C Onset: 06/24/2019 Gastroesophageal reflux disease Loni Leach PA-C Onset: 06/24/2019 Essential hypertension Loni Leach PA-C Onset: 07/04/2019 Social History Type Date Description Comments Sex Unknown Tobacco Use Start: Unknown Patient has never smoked Smoking Status Reviewed: 06/24/19 Patient has never smoked Allergies, Adverse Reactions, Alerts Active Allergies Reaction Severity Comments Date Ciprofloxacin 06/06/2019 Medications Active Medications SIG Qnty Indications Ordering Date Provider Peg 3350/Electrolytes use as directed 4000ml Z80.0 Pancho Pollard DO 2018 240gm Solution Rec Celexa 1 po daily Unknown 40mg Tablets Pantoprazole Sodium 1 po daily Unknown 40mg Tablets DR Metformin HCL 1 po bid Unknown 500mg Tablets Bupropion 1 by mouth every Unknown Hydrochloride ER (XL) day 300mg Tablets ER 24HR Sprintec 28 1 po daily Unknown 0.25-35mg-mcg Tablets Immunizations Description No Information Available Vital Signs Date Vital Result Comment 06/24/2019 11:02am Height 63 inches 5'3" Weight 360.00 lb BP Systolic 131 mmHg BP Diastolic 76 mmHg Heart Rate 81 /min BMI (Body Mass Index) 63.8 kg/m2 Results Test Date Facility Test Result H/L Range Note CMP(!) 06/06/2019 [facility] Sodium(!) <pending> Potassium(!) <pending> Chloride Serum/Plasma(!) <pending> Carbon Dioxide Ser/Plasm(!) <pending> BUN - Urea Nitrogen(!) <pending> Calcium Ser/Plasma Mass/Vol(!) <pending> Creatinine Serum Mass/Vol(!) <pending> Glucose Serum(!) <pending> BUN/Creatinine Ratio(!) <pending> Albumin Serum/Plasma(!) <pending> Alkaline Phosphatase(!) <pending> Bilirubin Total Mass/Vol(!) <pending> Ast - Sgot <pending> Alt - SGPT <pending> Protein Total <pending> Iron/Uibc/Tibc/%Sat 06/06/2019 [facility] Iron-Total <pending> Iron-Uibc <pending> Iron Binding Capacity Mass/Vol <pending> % Iron Saturation <pending> Laboratory test 06/06/2019 [facility] Vitamin B12 Ser <pending> finding Mass/Vol CBC W/Auto 06/06/2019 [facility] White Blood Count <pending> Differential(!) Ser Auto CNT RBC Red Blood Count <pending> Hemoglobin Blood <pending> Hematocrit <pending> MCV (Corpuscular Volume) <pending> MCH (Corpuscular Hemoglobin) <pending> MCHC (Corpuscular Hemog Conc) <pending> RDW <pending> Platelet Count Blood Auto CNT <pending> MPV <pending> Lymph% <pending> Creek% <pending> Neutrophil % <pending> Absolute Lymphocytes <pending> Absolute Monocytes <pending> Absolute Neutrophils <pending> Procedures Description No Information Available Medical Devices Description No Information Available Encounters Description No Information Available Assessments Date Code Description Provider 06/24/2019 K21.9 Gastro-esophageal reflux disease without Loni Leach PA-C esophagitis 06/24/2019 E66.01 Morbid (severe) obesity due to excess Loni Leach PA-C calories 06/24/2019 Z80.0 Family history of malignant neoplasm of JOSELO Montoya-C digestive organs Plan of Treatment Future Appointment(s):08/05/2019 8:00 am - Pancho Pollard DO at [facility]06/24/2019 - JOSELO Montoya-CK21.9 Gastro- esophageal reflux disease without jeeyidupfhwO48.01 Morbid (severe) obesity due to excess dqvipmuaA50.0 Family history of malignant neoplasm of digestive organsNew Medication:Peg 3350/Electrolytes 240 gm - use as directed Functional Status Description No Information Available Mental Status Description No Information Available Referrals Description No Information Available
--- OUTSIDE RECORDS SUMMARY | 2019-08-27 22:37 | XMS REPORT | Continuity of Care Document ---
:1975 External Reference #:[id number] Author Name Pancho DO Latrice Address [address] [place] [id number] Care Team Providers Name Role Phone Glody Carlin MD - Surgery Care Team Information Sales Operations Assistant [phone] Thelma Hussein MD Care Team Information Sales Operations Assistant [phone] Problems Active Problems Provider Date Family history [...] (Body Mass Index) 63.8 kg/m2 Results Test Acquired Date Facility Test Result H/L Range Note Surgical 08/05/2019 [facility] [place] SEE RESULT 1 Pathology Pathology BELOW PDFReport SEE IMAGE Laboratory test 08/05/2019 [facility] [place] Clotest SEE RESULT 2 finding BELOW Laboratory test 08/05/2019 [facility] [place] Point of Care 100 mg/dL Normal 70-100 3 finding Glucose CMP(!) 06/06/2019 [facility] Sodium(!) <pending> Potassium(!) [...] Auto CNT <pending> MPV <pending> Lymph% <pending> Loup% <pending> Neutrophil % <pending> Absolute Lymphocytes <pending> Absolute Monocytes <pending> Absolute Neutrophils <pending> 1 SEE RESULT BELOW Name: DAVID CHILEL : [address]: Pancho Pollard DO Acct: [id number] Unit: [id number] AGE: 44 Location: OR Re08/05/19 SEX: F Status: REG [facility] SPEC: [id number] TY: 08/05/19- SUBM DR: Pancho Pollard DO REQ: [id number] RECD: 08/05/19 STATUS: HAYDEN VARMA DR: Goldy Hussein MD _ ORDERED: LEVEL 4 FINAL DIAGNOSIS Esophagus, distal, biopsy: -- Benign squamous and columnar-type mucosa with chronic inflammation. -- Intestinal metaplasia is absent. -- Dysplasia is absent. CLINICAL HISTORY Gastroesophageal reflux disease; obesity; high risk screening POST-OPERATIVE DIAGNOSIS EGD: esophagus - mild gastroesophageal junction variable; small 1-2 cm sliding hiatal hernia; gastric - normal biopsy; duodenum - normal; colonoscopy: to cecum; normal; good prep; internal hemorrhoid GROSS DESCRIPTION The specimen is received in formalin labeled, Biopsy Distal Esophagus, and consists of two dunn-pink to white irregular soft tissue fragments measuring 0.3 x 0.2 x 0.1 cm and 0.4 x 0.2 x 0.1 cm which are submitted entirely in one cassette. Signed by and Reported on: Laura Rao MD 08/08/19 1306 END OF REPORT DEPARTMENT OF PATHOLOGY, [address] [place] [address] Cristino Bettencourt M.D. Director [facility] # [id number] SEE RESULT BELOW Name: DAVID CHILEL : [address]: Pancho Pollard DO Acct: [id number] Unit: [id number] AGE: 44 Location: OR Re08/05/19 SEX: F Status: [facility] SPEC: [id number] TY: 08/05/19- [facility] DR: Pancho Pollard DO REQ: [id number] RECD: 08/05/19 STATUS: HAYDEN VARMA DR: Goldy Hussein MD _ ORDERED: LEVEL 4 FINAL DIAGNOSIS Esophagus, distal, biopsy: -- Benign squamous and columnar-type mucosa with chronic inflammation. -- Intestinal metaplasia is absent. -- Dysplasia is absent. CLINICAL HISTORY Gastroesophageal reflux disease; obesity; high risk screening POST-OPERATIVE DIAGNOSIS EGD: esophagus - mild gastroesophageal junction variable; small 1-2 cm sliding hiatal hernia; gastric - normal biopsy; duodenum - normal; colonoscopy: to cecum; normal; good prep; internal hemorrhoid GROSS DESCRIPTION The specimen is received in formalin labeled, Biopsy Distal Esophagus, and consists of two dunn-pink to white irregular soft tissue fragments measuring 0.3 x 0.2 x 0.1 cm and 0.4 x 0.2 x 0.1 cm which are submitted entirely in one cassette. Signed by and Reported on: Laura Rao MD 08/08/19 1306 END OF REPORT DEPARTMENT OF PATHOLOGY, [address] [place] [address] Cristino Bettencourt M.D. Director [facility] # [id number] SEE RESULT BELOW Name: DAVID CHILEL : [address]: Pancho Pollard DO Acct: [id number] Unit: [id number] AGE: 44 Location: OR Re08/05/19 SEX: F Status: REG [facility] SPEC: [id number] TY: 08/05/19- SUBM DR: Pancho Pollard DO REQ: [id number] RECD: 08/05/19-1235 STATUS: HAYDEN VARMA DR: Goldy Hussein MD _ ORDERED: LEVEL 4 FINAL DIAGNOSIS Esophagus, distal, biopsy: -- Benign squamous and columnar-type mucosa with chronic inflammation. -- Intestinal metaplasia is absent. -- Dysplasia is absent. CLINICAL HISTORY Gastroesophageal reflux disease; obesity; high risk screening POST-OPERATIVE DIAGNOSIS EGD: esophagus - mild gastroesophageal junction variable; small 1-2 cm sliding hiatal hernia; gastric - normal biopsy; duodenum - normal; colonoscopy: to cecum; normal; good prep; internal hemorrhoid GROSS DESCRIPTION The specimen is received in formalin labeled, Biopsy Distal Esophagus, and consists of two dunn-pink to white irregular soft tissue fragments measuring 0.3 x 0.2 x 0.1 cm and 0.4 x 0.2 x 0.1 cm which are submitted entirely in one cassette. Signed by and Reported on: Laura Rao MD 08/08/19 1306 END OF REPORT DEPARTMENT OF PATHOLOGY, [address] [place] [address] Cristino Bettencourt M.D. Director [facility] # [id number] SEE RESULT BELOW Name: DAVID CHILEL : [address]: Pancho Pollard DO Acct: [id number] Unit: [id number] AGE: 44 Location: OR Re08/05/19 SEX: F Status: REG [facility] SPEC: [id number] TY: 08/05/19- SUBM DR: Pancho Pollard DO REQ: [id number] RECD: 08/05/19 STATUS: HAYDEN VARMA DR: Goldy Hussein MD _ ORDERED: LEVEL 4 FINAL DIAGNOSIS Esophagus, distal, biopsy: -- Benign squamous and columnar-type mucosa with chronic inflammation. -- Intestinal metaplasia is absent. -- Dysplasia is absent. CLINICAL HISTORY Gastroesophageal reflux disease; obesity; high risk screening POST-OPERATIVE DIAGNOSIS EGD: esophagus - mild gastroesophageal junction variable; small 1-2 cm sliding hiatal hernia; gastric - normal biopsy; duodenum - normal; colonoscopy: to cecum; normal; good prep; internal hemorrhoid GROSS DESCRIPTION The specimen is received in formalin labeled, Biopsy Distal Esophagus, and consists of two dunn-pink to white irregular soft tissue fragments measuring 0.3 x 0.2 x 0.1 cm and 0.4 x 0.2 x 0.1 cm which are submitted entirely in one cassette. Signed by and Reported on: Laura Rao MD 08/08/19 1306 END OF REPORT DEPARTMENT OF PATHOLOGY, [address] [place] [address] Cristino Bettencourt M.D. Director [facility] # [id number] 2 SEE RESULT BELOW Name: DAVID CHILEL : [address]: Pancho Pollard DO Acct: [id number] Unit: [id number] AGE: 44 Location: OR Re08/05/19 SEX: F Status: REG [facility] SPEC: [id number] TY: 08/05/19-[address]: Pancho Pollard DO REQ: [id number] RECD: 08/05/196 STATUS:NIRALI VARMA DR: Goldy Hussein MD _ SOURCE: GAS ANTRUM SPDESC: ORDERED: Clotest Procedure Result Reported Site Clotest Final 08/06/19- 45 ML Clotest Negative * ML - Main Lab . END OF REPORT DEPARTMENT OF PATHOLOGY, [address] [place] [address] Cristino Bettencourt M.D. Director [facility] # [id number] SEE RESULT BELOW Name: DAVID CHILEL : [address]: Pancho Pollard DO Acct: [id number] Unit: [id number] AGE: 44 Location: OR Re08/05/19 SEX: F Status: REG [facility] SPEC: [id number] TY: 08/05/19-9 [facility] DR: Pancho Pollard DO REQ: [id number] RECD: 08/05/19-1246 STATUS:NIRALI VARMA DR: Goldy Hussein MD _ SOURCE: GAS ANTRUM SPDESC: ORDERED: Clotest Procedure Result Reported Site Clotest Final 08/06/19- 45 ML Clotest Negative * ML - Main Lab . END OF REPORT DEPARTMENT OF PATHOLOGY, [address] [place] [address] Cristino Bettencourt M.D. Director [facility] # [id number] SEE RESULT BELOW Name: CHILELDAVID Mead : [address]: Pancho Pollard DO Acct: [id number] Unit: [id number] AGE: 44 Location: OR Re08/05/19 SEX: F Status: REG SDC SPEC: [id number] TY: 08/05/19-1049 [facility] DR: Pancho Pollard DO REQ: [id number] RECD: 08/05/196666 STATUS:NIRALI VARMA DR: Goldy Hussein MD _ SOURCE: GAS ANTRUM SPDESC: ORDERED: Clotest Procedure Result Reported Site Clotest Final 08/06/19- 45 ML Clotest Negative * ML - Main Lab . END OF REPORT DEPARTMENT OF PATHOLOGY, [address] [place] [address] Cristino Bettencourt M.D. Director [facility] # [id number] 3 Manual Writer: [id number] Procedures Description No Information Available Medical Devices Description No Information Available Encounters Type Date Location Provider Dx Diagnosis Office Visit 06/24/2019 Gastroenterology Loni Govea K21.9 Gastro- esophageal 11:[facility] RADHA Leach reflux disease without esophagitis E66.01 Morbid (severe) obesity due to excess calories Z80.0 Family history of malignant neoplasm of digestive organs Assessments Date Code Description Provider 06/24/2019 K21.9 Gastro-esophageal reflux disease without Loni Leach PA-C esophagitis 06/24/2019 E66.01 Morbid (severe) obesity due to excess Loni Leach PA-C calories 06/24/2019 Z80.0 Family history of malignant neoplasm of Loni Leach PA-C digestive organs Plan of Treatment 06/24/2019 - ROXANNE MontoyaCK21.9 Gastro-esophageal reflux disease without ampqktzybjvH84.01 Morbid (severe) obesity due to excess ogqtlvkyH28.0 Family history of malignant neoplasm of digestive organsNew Medication:Peg 3350/ Electrolytes 240 gm - use as directed Functional Status Description No Information Available Mental Status Description No Information Available Referrals Description No Information Available
--- OUTSIDE RECORDS SUMMARY | 2019-08-27 22:37 | XMS REPORT | Continuity of Care Document ---
:1975 External Reference #:[id number] Author Name Pancho DO Latrice Address [address] [place] [id number] Care Team Providers Name Role Phone Goldy Carlin MD - Surgery Care Team Information Vest Busheler [phone] Thelma Hussein MD Care Team Information Vest Busheler [phone] Problems Active Problems Provider Date Family history [...] Test Result H/L Range Note Surgical 08/05/2019 [facility] [place] Surgical SEE RESULT 1 Pathology Pathology BELOW PDFReport SEE IMAGE Laboratory test 08/05/2019 [facility] Clotest SEE RESULT 2 finding BELOW Laboratory test 08/05/2019 [facility] Point of Care 100 mg/dL Normal 70-100 [...] Auto CNT <pending> MPV <pending> Lymph% <pending> Louisa% <pending> Neutrophil % <pending> Absolute Lymphocytes <pending> Absolute Monocytes <pending> Absolute Neutrophils <pending> 1 SEE RESULT BELOW Name: DAVID CHILEL : [address]: Pancho Pollard DO Acct: [id number] Unit: [id number] AGE: 44 Location: [place] Re08/05/19 SEX: F [place] [facility] [place]: [id number] TY: 08/05/19- SUBM DR: Pancho Pollard DO REQ: [id number] RECD: 08/05/19 STATUS: HAYDEN VARMA DR: Goldy [...] 1306 END OF REPORT DEPARTMENT OF PATHOLOGY, [address] [place] [address] Cristino Bettencourt M.D. Director [facility] # [id number] SEE RESULT BELOW Name: DAVID CHILEL : [address]: Pancho Pollard DO Acct: [id number] Unit: [id number] AGE: 44 Location: [place] Re08/05/19 SEX: F Status[place] [facility] [place]: [id number] TY: 08/05/19- [facility] DR: Pancho Pollard DO REQ: [id number] RECD: 08/05/19 STATUS: HAYDEN VARMA DR: Goldy [...] 1306 END OF REPORT DEPARTMENT OF PATHOLOGY, [address] [place] [address] Cristino Bettencourt M.D. Director [facility] # [id number] SEE RESULT BELOW Name: DAVID CHILEL : [address]: Pancho Pollard DO Acct: [id number] Unit: [id number] AGE: 44 Location: [place] Re08/05/19 SEX: F [place] [facility] [place]C: [id number] TY: 08/05/19- SUBM DR: Pancho Pollard DO REQ: [id number] RECD: 08/05/19-1235 STATUS: HAYDEN VARMA DR: Goldy [...] 1306 END OF REPORT DEPARTMENT OF PATHOLOGY, [address] [place] [address] Cristino Bettencourt M.D. Director [facility] # [id number] SEE RESULT BELOW Name: DAVID CHILEL : [address]: Pancho Pollard DO Acct: [id number] Unit: [id number] AGE: 44 Location: [place] Re08/05/19 SEX: F Status: REG SD[facility] SPEC: [id number] TY: 08/05/19- SUBM DR: Pancho Pollard DO REQ: [id number] RECD: 08/05/19 STATUS: HAYDEN VARMA DR: Goldy [...] 1306 END OF REPORT DEPARTMENT OF PATHOLOGY, [address] [place] [address] Cristino Bettencourt M.D. Director [facility] # [id number] 2 SEE RESULT BELOW Name: DAVID CHILEL : [address]: Pancho Pollard DO Acct: [id number] Unit: [id number] AGE: 44 Location: [place] Re08/05/19 SEX: F Status: REG SDC SPEC: [id number] TY: 08/05/19-[address]: Pancho Pollard DO REQ: [id number] RECD: 08/05/196 STATUS:NIRALI VARMA DR: Goldy Hussein MD _ SOURCE: GAS ANTRUM SPDESC: ORDERED: Clotest Procedure Result Reported Site Clotest Final 08/06/19- 45 ML Clotest Negative * ML - Main Lab . END OF REPORT DEPARTMENT OF PATHOLOGY, [address] [place] [address] Cristino Bettencourt M.D. Director [facility] # [id number] SEE RESULT BELOW Name: DAVID CHILEL : [address]: Pancho Pollard DO Acct: [id number] Unit: [id number] AGE: 44 Location: OR Re08/05/19 SEX: F Status: REG SDC SPEC: [id number] TY: 08/05/19-[address] [facility] [address]: Pancho Pollard DO REQ: [id number] RECD: 08/05/19-1246 STATUS:NIRALI VARMA DR: Goldy Hussein MD _ SOURCE: GAS ANTRUM SPDESC: ORDERED: Clotest Procedure Result Reported Site Clotest Final 08/06/19- 45 ML Clotest Negative * ML - Main Lab . END OF REPORT DEPARTMENT OF PATHOLOGY, [address] [place] [address] Cristino Bettencourt M.D. Director [facility] # [id number] SEE RESULT BELOW Name: CHILELDAVID Mead : [address]: Pancho Pollard DO Acct: [id number] Unit: [id number] AGE: 44 Location: OR Re08/05/19 SEX: F Status: REG SDC SPEC: [id number] TY: 08/05/19-[address] [facility] [address]: Pancho Pollard DO REQ: [id number] RECD: 08/05/197248 STATUS:NIRALI VARMA DR: Goldy Hussein MD _ SOURCE: GAS ANTRUM SPDESC: ORDERED: Clotest Procedure Result Reported Site Clotest Final 08/06/19- 45 ML Clotest Negative * ML - Main Lab . END OF REPORT DEPARTMENT OF PATHOLOGY, [address] [place] [address] Cristino Bettencourt M.D. Director [facility] # [id number] 3 Labor Crew Supervisor: [id number] Procedures Description No Information Available Medical Devices Description No Information Available Encounters Type Date Location Provider Dx Diagnosis Office Visit 06/24/2019 [facility] Loni Govea K21.9 [facility]astro- esophageal [facility] RADHA Leach reflux disease without esophagitis E66.01 [...] - ROXANNE MontoyaCK21.9 Gastro-esophageal reflux disease without mpsbmoyptrhK76.01 Morbid (severe) obesity due to excess raqcyqftF14.0 Family history of malignant neoplasm of digestive organsNew Medication:Peg 3350/ Electrolytes 240 gm - use as directed Functional Status Description No Information Available Mental Status Description No Information Available Referrals Description No Information Available
--- NOTE | 2019-08-28 00:02 | ED ---
Lower Extremity - HPI Summary HPI Summary: 44 year old female presents with right leg pain for the past week. She states she is concerned that she has a blood clot. Has history of varicose veins. Denies any rash. She states area is warm. No injury. She denies any numbness or tingling. she has a family history of blood clots. She denies any recent travel. Has no medical conditions. She denies any chest pain shortness breath. - History of Current Complaint Chief Complaint: EDExtremityLower Stated Complaint: POSSIBLE BLOOT CLOT IN RIGHT LEG PER PT Time Seen by Provider: 08/27/19 23:13 Pain Intensity: 6 - Allergies/Home Medications Allergies/Adverse Reactions: Allergies Allergy/AdvReac Type Severity Reaction Status Date / Time ciprofloxacin [From Ciloxan] Allergy Unknown Unknown Verified 08/27/19 22:31 Reaction Details PMH/Surg Hx/FS Hx/Imm Hx Endocrine/Hematology History: Reports: Hx Diabetes - PRE DIABETIC-ON MEDICATION FOR Cardiovascular History: Denies: Hx Hypertension, Hx Pacemaker/ICD, Other Cardiovascular Problems/ Disorders Respiratory History: Reports: Hx Chronic Bronchitis, Hx Sleep Apnea Denies: Other Respiratory Problems/Disorders GI History: Reports: Hx Gastroesophageal Reflux Disease - ON MEDICATION FOR Denies: Other GI Disorders History: Reports: Hx Kidney Infection - HX OF, Hx Kidney Stones - HX OF Denies: Hx Renal Disease, Other Problems/Disorders Musculoskeletal History: Reports: Hx Arthritis - OSTEO-BILATERAL KNEE Denies: Other Musculoskeletal History Sensory History: Reports: Hx Contacts or Glasses - INSTRUCTS GIVEN, Hx Vision Problem - Lasix Denies: Hx Hearing Aid Opthamlomology History: Reports: Hx Contacts or Glasses - INSTRUCTS GIVEN, Hx Vision Problem - Lasix Neurological History: Denies: Other Neuro Impairments/Disorders Psychiatric History: Reports: Hx Anxiety, Hx Depression - ON MEDICATION FOR - Surgical History Surgery Procedure, Year, and Place: Lithotripsy 8 years ago; Lasik, uretral stent placement 11/26/17 Hx Anesthesia Reactions: No Infectious Disease History: No Infectious Disease History: Denies: Traveled Outside the [place] in Last 30 Days - Family History Known Family History: Positive: Diabetes, Other - cancer, thyroid issues, blood clots - Social History Alcohol Use: None Substance Use Type: Reports: None Smoking Status (MU): Never Smoked Tobacco Have You Smoked in the Last Year: No Review of Systems Negative: Fever Negative: Chest Pain Negative: Shortness Of Breath Positive: Myalgia - right leg pain All Other Systems Reviewed And Are Negative: Yes Physical Exam Triage Information Reviewed: Yes Vital Signs On Initial Exam: Initial Vitals Temp Pulse Resp BP Pulse Ox 98.8 F 101 24 167/99 97 08/27/19 22:27 08/27/19 22:27 08/27/19 22:27 08/27/19 22:27 08/27/19 22:27 Vital Signs Reviewed: Yes Appearance: Positive: Well-Appearing Skin: Positive: Warm, Dry, Other - varicose veins present on right posterior leg Head/Face: Positive: Normal Head/Face Inspection Eyes: Positive: Normal, Conjunctiva Clear ENT: Positive: Pharynx normal Respiratory/Lung Sounds: Positive: Clear to Auscultation, Breath Sounds Present Cardiovascular: Positive: Normal, RRR Musculoskeletal: Positive: Strength/ROM Intact - right leg, Other - good pulses , sensation grossly intact Neurological: Positive: Normal Psychiatric: Positive: Normal Procedures - Sedation Patient Received Moderate/Deep Sedation with Procedure: No Diagnostics - Vital Signs Vital Signs Temp Pulse Resp BP Pulse Ox 08/27/19 22:27 98.8 F 101 24 167/99 97 - Laboratory Lab Statement: Any lab studies that have been ordered have been reviewed, and results considered in the medical decision making process. - Ultrasound No standard instances Ultrasound Interpretation Completed By: Radiologist Summary of Ultrasound Findings: IMPRESSION: No acute findings with the exception of the peroneal vein not being identified. No evidence of deep vein thrombosis Lower Extremity Course/Dx - Course Course Of Treatment: 44 year old female presents with right leg pain for the past week. She states she is concerned that she has a blood clot. Has history of varicose veins. Denies any rash. She states area is warm. No injury. She denies any numbness or tingling. she has a family history of blood clots. She denies any recent travel. Has no medical conditions. She denies any chest pain shortness breath. On exam tenderness over right posterior thigh. has varicose veins present. Ultrasound shows no DVT. Told to use compression socks and ice elevate. Patient understands and agrees plan. - Diagnoses Differential Diagnosis/HQI/PQRI: Positive: DVT, Phlebitis, Sprain Provider Diagnoses: Right leg pain Discharge ED - Sign-Out/Discharge Documenting (check all that apply): Patient Departure - Discharge Plan Condition: Good Disposition: HOME Patient Education Materials: Leg Pain (ED) Referrals: Nancy Urbano NP [Primary Care Provider] - Additional Instructions: Use compression socks Ice Elevate Take Tylenol for pain every 6 hours Follow up with primary within 5 days Return to ED if develop any new or worsening symptoms - Billing Disposition and Condition Condition: GOOD Disposition: Home
[2019-08-28 00:37] VITALS: BP 158/83
== END 2019-08-28 00:36 | disposition home or self-care (01) ==
LOC: ED 22:23
DX: M79.604 Pain in right leg (principal); R73.03 Prediabetes; K21.9 Gastro-esophageal reflux disease without esophagitis; F41.9 Anxiety disorder, unspecified; F32.9 Major depressive disorder, single episode, unspecified; Z79.899 Other long term (current) drug therapy; Z88.1 Allergy status to other antibiotic agents; Z87.442 Personal history of urinary calculi
CPT/HCPCS: 99282

== ENCOUNTER 2019-08-28 15:55 | Emergency (ER) | payer OTHER ==
[2019-08-28 16:37] LABS: ABS Basophils 0.1 10^3/ul (0-0.2); ABS Eosinophils 0.2 10^3/ul (0-0.6); ABS Lymphocytes 2.7 10^3/ul (1.0-4.8); ABS Monocytes 0.8 10^3/ul (0-0.8); Eosinophil % 1.6 %; Hematocrit 38 % (35-47); Hemoglobin 12.1 g/dL (12.0-16.0); Lymphocyte % 19.4 %; Mean Corpuscular HGB Conc 32 g/dL (31-36); Mean Corpuscular Hemoglobin 25 pg (27-31); Mean Corpuscular Volume 77 fL (80-97); Mean Platelet Volume 7.2 fL (7.4-10.4); Platelet Count 322 10^3/uL (150-450); Red Blood Count 4.85 10^6 /uL (3.70-4.87); Red Cell Distribution Width 16 % (10-15); White Blood Count 13.7 10^3/uL (3.5-10.8)
[2019-08-28 16:53] LABS: Albumin 3.7 g/dL (3.2-5.2); Albumin/Globulin Ratio 1.2 (1-3); BUN/Creatinine Ratio 17.6 (8-20); Calcium 9.4 mg/dL (8.6-10.3); EGFR African American 104.1 (>60); EGFR Non-African American 86.1 (>60); Globulin 3.2 g/dL (2-4); Potassium 4.1 mmol/L (3.5-5.0); Total Bilirubin 0.2 mg/dL (0.2-1.0); Total Protein 6.9 g/dL (6.4-8.9)
--- NOTE | 2019-08-28 17:04 | ED ---
GI/ HPI - HPI Summary HPI Summary: 44 year old female presents to the ED with constant left flank pressure starting at noon today. She reports nausea. Patient denies abdominal pain, vomiting, fever, hematuria, and dysuria. Patient has a history of left-sided hydroureteronephrosis and pyelonephritis, for which she was seen in January for by Dr. Jefferson, who gave her a ureteral stent. She reports having 2 more stents since January. History of DM. Denies hematuria. - History of Current Complaint Chief Complaint: EDFlankPain Time Seen by Provider: 08/28/19 16:24 Stated Complaint: LOWER BACK PAIN PER PT Hx Obtained From: Patient Onset/Duration: Started Hours Ago, Still Present Timing: Constant Severity: Severe Current Severity: Severe Pain Intensity: 8 Location of Pain: Flank - left Pain Characteristics: Pressure Associated Signs and Symptoms: Positive: Nausea Aggravating Factor(s): Nothing Alleviating Factor(s): Nothing - Additional Pertinent History Primary Care Physician: MARY - Allergy/Home Medications Allergies/Adverse Reactions: Allergies Allergy/AdvReac Type Severity Reaction Status Date / Time ciprofloxacin [From Ciloxan] Allergy Unknown Unknown Verified 08/28/19 15:59 Reaction Details PMH/Surg Hx/FS Hx/Imm Hx Endocrine/Hematology History: Reports: Hx Diabetes - PRE DIABETIC-ON MEDICATION FOR Cardiovascular History: Denies: Hx Hypertension, Hx Pacemaker/ICD, Other Cardiovascular Problems/ Disorders Respiratory History: Reports: Hx Chronic Bronchitis, Hx Sleep Apnea Denies: Other Respiratory Problems/Disorders GI History: Reports: Hx Gastroesophageal Reflux Disease - ON MEDICATION FOR Denies: Other GI Disorders History: Reports: Hx Kidney Infection - HX OF, Hx Kidney Stones - HX OF Denies: Hx Renal Disease, Other Problems/Disorders Musculoskeletal History: Reports: Hx Arthritis - OSTEO-BILATERAL KNEE Denies: Other Musculoskeletal History Sensory History: Reports: Hx Contacts or Glasses - INSTRUCTS GIVEN, Hx Vision Problem - Lasix Denies: Hx Hearing Aid Opthamlomology History: Reports: Hx Contacts or Glasses - INSTRUCTS GIVEN, Hx Vision Problem - Lasix Neurological History: Denies: Other Neuro Impairments/Disorders Psychiatric History: Reports: Hx Anxiety, Hx Depression - ON MEDICATION FOR - Surgical History Surgery Procedure, Year, and Place: Lithotripsy 8 years ago; Lasik, uretral stent placement 11/26/17 Hx Anesthesia Reactions: No Infectious Disease History: No Infectious Disease History: Denies: Traveled Outside the [place] in Last 30 Days - Family History Known Family History: Positive: Diabetes, Other - cancer, thyroid issues, blood clots - Social History Alcohol Use: None Substance Use Type: Reports: None Smoking Status (MU): Never Smoked Tobacco Have You Smoked in the Last Year: No Review of Systems Negative: Fever Positive: Nausea. Negative: Abdominal Pain, Vomiting Positive: flank pain. Negative: dysuria, hematuria All Other Systems Reviewed And Are Negative: Yes Physical Exam - Summary Physical Exam Summary: Constitutional: Morbidly Obese, Alert. (-) Distressed Skin: Warm, Dry HENT: Normocephalic; Atraumatic Eyes: Conjunctiva normal Neck: Musculoskeletal ROM normal neck. (-) JVD, (-) Stridor, (-) Nuchal rigidity Cardio: Rhythm regular, rate normal, Heart sounds normal; Intact distal pulses; Radial pulses are 2+ and symmetric. (-) Murmur Pulmonary/Chest wall: Effort normal. (-) Respiratory distress, (-) Wheezes, (-) Rales Abd: Soft, (-) tenderness, (-) Distension, (-) Guarding, (-) Rebound Musculoskeletal: (-) Edema. Left flank pain. Lymph: (-) Cervical adenopathy Neuro: Alert, Oriented x3 Psych: Mood and affect Normal Triage Information Reviewed: Yes Vital Signs On Initial Exam: Initial Vitals Temp Pulse Resp BP Pulse Ox 97.0 F 88 16 174/100 99 08/28/19 15:55 08/28/19 15:55 08/28/19 15:55 08/28/19 15:55 08/28/19 15:55 Vital Signs Reviewed: Yes Procedures - Sedation Patient Received Moderate/Deep Sedation with Procedure: No Diagnostics - Vital Signs Vital Signs Temp Pulse Resp BP Pulse Ox 08/28/19 15:55 97.0 F 88 16 174/100 99 - Laboratory Lab Results: Lab Results 08/28/19 08/28/19 Range/Units 16:32 16:32 WBC 13.7 H (3.5-10.8) 10^3/uL RBC 4.85 (3.70-4.87) 10^6 /uL Hgb 12.1 (12.0-16.0) g/dL Hct 38 (35-47) % MCV 77 L (80-97) fL MCH 25 L (27-31) pg MCHC 32 (31-36) g/dL RDW 16 H (10-15) % Plt Count 322 (150-450) 10^3/uL MPV 7.2 L (7.4-10.4) fL Neut % (Auto) 72.4 % Lymph % (Auto) 19.4 % [place] % (Auto) 5.7 % Eos % (Auto) 1.6 % Baso % (Auto) 0.9 % Absolute Neuts (auto) 10.0 H (1.5-7.7) 10^3/ul Absolute Lymphs (auto) 2.7 (1.0-4.8) 10^3/ul Absolute Monos (auto) 0.8 (0-0.8) 10^3/ul Absolute Eos (auto) 0.2 (0-0.6) 10^3/ul Absolute Basos (auto) 0.1 (0-0.2) 10^3/ul Absolute Nucleated RBC 0.0 10^3/ul Nucleated RBC % 0.0 Sodium 137 (135-145) mmol/L Potassium 4.1 (3.5-5.0) mmol/L Chloride 102 (101-111) mmol/L Carbon Dioxide 28 (22-32) mmol/L Anion Gap 7 (2-11) mmol/L BUN 13 (6-24) mg/dL Creatinine 0.74 (0.51-0.95) mg/dL Est GFR ( Amer) 104.1 (>60) Est GFR (Non-Af Amer) 86.1 (>60) BUN/Creatinine Ratio 17.6 (8-20) Glucose 90 (70-100) mg/dL Calcium 9.4 (8.6-10.3) mg/dL Total Bilirubin 0.20 (0.2-1.0) mg/dL AST 15 (13-39) U/L ALT 23 (7-52) U/L Alkaline Phosphatase 77 (34-104) U/L Total Protein 6.9 (6.4-8.9) g/dL Albumin 3.7 (3.2-5.2) g/dL Globulin 3.2 (2-4) g/dL Albumin/Globulin Ratio 1.2 (1-3) Result Diagrams: 08/28/19 16:32 12/08/19 16:32 Lab Statement: Any lab studies that have been ordered have been reviewed, and results considered in the medical decision making process. - Radiology Abd XR Radiology Interpretation Completed By: Radiologist Summary of Radiographic Findings: IMPRESSION: No ureteral stent or definite renal calculus identified by degraded radiograph. An ED physician has reviewed this report. - CT APCT CT Interpretation Completed By: Radiologist Summary of CT Findings: IMPRESSION: Mild to moderate left hydroureteronephrosis , similar to prior study, but with. increased left perinephric stranding. No radiopaque renal or ureteral calculus. identified, and distal ureteral stricture is a consideration. Renal infection. is not excluded. An ED physician has reviewed this report. - Ultrasound Renal US Ultrasound Interpretation Completed By: Radiologist Summary of Ultrasound Findings: IMPRESSION: 1. Mild to moderate left hydronephrosis. Left ureteral jet is NOT identified in. the urinary bladder. 2. Right kidney not assessed. An ED physician has reviewed this report. GIGU Course/Dx - Course Course Of Treatment: 44 y/o F w history of left-sided hydroureteronephrosis, ureteral stricture, and pyelonephritis p/w L flank pain. - VSS NAD. PE w L flank tenderness. No fevers. Labs w mild leukocytosis. KUB w/o stent, US w hydronephrosis. - UA neg for infection. - CT obtained shows L renal stranding. D/w urology plan for abx and pain control, they will see in the office, suspect stricture. - Diagnoses Provider Diagnoses: Left flank pain, Ureteral stricture - Physician Notifications Discussed Care Of Patient With: Mushtaq Chaudhari Time Discussed With Above Provider: 19:47 Instructed by Provider To: Petey Chaudhari at 19:47 said we should do a CT and then the patient will most likely go home. Jan at 21:01 recommended prophylactic abx for pt. Discharge ED - Sign-Out/Discharge Documenting (check all that apply): Patient Departure - discharge - Discharge Plan Condition: Stable Disposition: HOME Prescriptions: Cephalexin CAP* [Keflex CAP*] 500 mg PO QID 7 Days #28 cap oxyCODONE/Acetamin 5/325 MG* [Percocet 5/325 TAB*] 1 tab PO Q6H PRN 2 Days #8 tab MDD 4 PRN Reason: Pain Patient Education Materials: Flank Pain (ED) Referrals: Nancy Urbano NP [Primary Care Provider] - Additional Instructions: You were seen in the emergency department for flank pain. Your CT scan did not show any stones. take Keflex 4 times a day as well as Percocet as needed for severe pain. Please follow up with your urologist on Thursday. Please follow up with your primary care doctor in the next 2-3 days and return to the emergency department for worsening pain, fevers, decreased urine output or concerning symptoms. It was a pleasure taking care of you today. - Billing Disposition and Condition Condition: STABLE Disposition: Home - Attestation Statements Document Initiated by Lailaibshanti: Yes Documenting Scribe: Austin Tomlinson Provider For Whom Poncho is Documenting (Include Credential): Maame Guadalupe MD. Scribe Attestation: Austin Ace, scribed for Maame Guadalupe MD. on 08/29/19 at 1751. Scribe Documentation Reviewed: Yes Provider Attestation: The documentation as recorded by the scribAustin moser accurately reflects the service I personally performed and the decisions made by Maame rosales MD. Status of Scribe Document: Viewed
[2019-08-28] MEDS ORDERED: Morphine 4 MG/ML VIAL (1 ml) 4 MG/ML VIAL IV ONE ×2 (17:13→21:08)
[2019-08-28] MEDS ORDERED: Ondansetron INJ* 2 MG/ML VIAL IV ONE (17:13)
[2019-08-28 19:23] LABS: Urine Appearance Clear; Urine Bilirubin Negative (Negative); Urine Blood 2+ (Negative); Urine Color Yellow; Urine Glucose Negative (Negative); Urine Ketones Negative (Negative); Urine Nitrite Negative (Negative); Urine Protein Negative (Negative); Urine Specific Gravity 1.017 (1.010-1.030); Urine Urobilinogen Negative (Negative)
[2019-08-28 19:31] LABS: Urine Bacteria Absent (Absent); Urine Red Blood Cell 3+(>10/hpf) (Absent); Urine Squamous Epithelial Cell Present (Absent); Urine White Blood Cell Absent (Absent)
[2019-08-28] MEDS ORDERED: oxyCODONE/Acetamin 5/325 MG* TAB PO ONE (21:27)
[2019-08-28] MEDS ORDERED: Cephalexin CAP* 500 MG PO ONE ×2 (21:27→21:49)
[2019-08-28 22:06] VITALS: BP 130/88
== END 2019-08-28 22:05 | disposition home or self-care (01) ==
LOC: ED 15:55
DX: N35.92 Unspecified urethral stricture, female (principal); R10.84 Generalized abdominal pain; R11.0 Nausea; R73.03 Prediabetes; K21.9 Gastro-esophageal reflux disease without esophagitis; Z87.442 Personal history of urinary calculi
CPT/HCPCS: 36415; 74018; 74176; 76775; 80053; 81003; 81015; 85025; 96374; 96375; 96376; 99283; A9270-GY; J2270; J2405

== ENCOUNTER → 2019-09-01 11:57 | Day surgery (SDC) | payer OTHER ==
--- NOTE | 2019-08-30 06:39 | HP ---
CC: Ms. Conroy * HISTORY AND PHYSICAL: DATE OF PLANNED ADMISSION AND SURGERY: 09/01/19. HISTORY OF PRESENT ILLNESS: Ms. Wilson is a 44-year-old white female who is admitted with recurrent distal left ureteral stricture for cystoscopy, left ureteroscopy, left retrograde pyelography, balloon dilation, and insertion of left ureteral stent. Please refer to my history and physical for her admission on 02/04/19, detailing her past urological history. In brief, Ms. Wilson developed a stricture of the distal left ureter secondary to chronic impaction of a calculus at that location for more than one year. In November 2018, she underwent a left ureteroscopy and laser lithotripsy with extraction of all the stone fragments. The ureteral wall at that location looked edematous, with disrupted mucosa from the chronic impaction, but no ureteral perforation at the end of the procedure. Following removal of the stent, she developed a left ureteral stricture and required balloon dilation and stent insertion on 02/04/19. The stent was removed about 2 months later. She initially did fine with the renal ultrasound showing only minimal hydronephrosis. She presented to the emergency room on 08/28/19 with left flank pain. She did not have any fever or chills. She had a noncontrast CT of the abdomen and pelvis, which showed moderate left hydronephrosis and hydroureter with the ureter dilated all the way into the distal portion just proximal to the ureterovesical junction at the site of the previously noted stricture. No calculi were seen in the ureter or in the collecting system. Because of that finding, the patient is admitted for the above procedure. PAST MEDICAL HISTORY AND SYSTEM REVIEW: The patient is morbidly obese. She is prediabetic and maintained on metformin. She has history of depression and is maintained on Celexa and Wellbutrin. She has GERD, on Protonix. MEDICATIONS: She is on oral contraceptives. ALLERGIES: She reports being allergic to CIPRO. FAMILY HISTORY: Negative for renal calculi. SOCIAL HISTORY: She is a nonsmoker and denies the use of recreational drugs. She has a history of anxiety and depression, on treatment. PHYSICAL EXAMINATION GENERAL: She is a pleasant morbidly obese white female, who looks her age. VITAL SIGNS: Blood pressure 130/88, pulse of 80. LUNGS: Clear. HEART: Regular and rhythmic. No murmurs. ABDOMEN: Soft. She has mild left CVA tenderness. IMPRESSION: Recent episode of left renal colic with moderate left hydroureteronephrosis secondary to distal left ureteral stricture, and past history of of impacted left ureteral calculi. PLAN/RECOMMENDATIONS: Plan is for cystoscopy, left retrograde pyelography, left ureteroscopy, balloon dilation of the distal ureteral stricture and insertion of left ureteral stent. I discussed the above plans in detail with the patient. If the dilation of the stricture fails and the stricture recurs, the patient will require surgical correction with left ureteral reimplantation. [id number]/CPS #: [id number] [facility]
[~2019-09-01 11:57] MED LIST changes: +Dexamethasone IV* 4 MG/ML 1 ML (4 MG) ONE; +Famotidine IV* 10 MG/ML 2 ML (20 mg) IV ONE; +Famotidine IV* 10 MG/ML 2 ML (20 mg) ONE; +Iohexol 180 (CONTRAST) 10 ML SDV IV ONE; +KETAMINE HCL* 50 MG/ML 10 ML VIAL ONE; +Ketorolac INJ* 30 MG/ML 1 ML VIAL ONE; -Midazolam* 1 MG/ML 2 ML VIAL (2 MG) ONE; +Naloxone* 0.4 MG/ML 1 ML VIAL IV PRN; +Ondansetron INJ* 2 MG/ML VIAL IV PRN; +Propofol* 10 MG/ML 20 ML BTL ONE; -Propofol* 500 MG/50 ML BTL ONE; +cefTRIAXone(*) 2 GM ADDV.VIAL IVPB ONE; +fentaNYL* 50 MCG/ML 2 ML VIAL (100 MCG VIAL) IV PRN; +fentaNYL* 50 MCG/ML 2 ML VIAL (100 MCG VIAL) ONE
[2019-09-01 17:43] VITALS: BP 145/84
--- NOTE | 2019-09-02 02:36 | OP ---
DATE OF OPERATION: 09/01/19 [facility] DATE OF : 79 SURGEON: Cleveland Jefferson MD. ANESTHESIOLOGIST: Dr. Francisco Javier Shea. ANESTHESIA: General. PRE-OP DIAGNOSES: 1. Moderate left hydroureteronephrosis. 2. Distal left ureteral stricture. POST-OP DIAGNOSES: 1. Moderate left hydroureteronephrosis. 2. Distal left ureteral stricture. OPERATIVE PROCEDURES: 1. Cystoscopy. 2. Left retrograde pyelography. 3. Left ureteroscopy. 4. Balloon dilation of distal left ureteral stricture. 5. Insertion of left ureteral stent (8.5 Tunisian, 24 cm, black silicone). INDICATIONS FOR PROCEDURE: Mrs. Wilson is a 44-year-old white female who developed a stricture in the distal third of the left ureter secondary to chronic impaction of a ureteral calculus. She underwent a left ureteroscopy and laser lithotripsy earlier this year with extraction of all the stone fragments. At the time of that procedure she was noted to have a significant degree of abrasion, hyperemia, and edema of the ureteral mucosa and wall secondary to the chronic stone impaction. All the stone fragments were then removed, and there was no evidence of injury to the ureter The stent was kept in place for several weeks and following its removal she was followed closely because of concern about her developing a ureteral stricture. Follow-up showed recurrence of the left hydroureteronephrosis and on 02/04/19, she underwent a cystoscopy and left ureteroscopy and was noted to have a stricture at the site of the original calculus. No stone fragments were seen. She had balloon dilation and insertion of an 8.5 Tunisian ureteral stent. The stent was kept for two months and after its removal, she did very well with only mild hydronephrosis on ultrasound. She presented to the emergency room 4 days ago with left flank pain, but no fever or chills. Non-contrast CT of the abdomen and pelvis showed moderate left hydroureteronephrosis with the obstruction at the level of the distal ureter with no calculus seen. The patient is admitted for the above procedure. PATHOLOGY: At cystoscopy, there was significant degree of reactive changes in the left trigone with squamous metaplasia changes around the left ureteral orifice. The rest of the bladder wall looked normal. The left ureteral office was not stenotic. Upon left ureteroscopy and retrograde pyelography, there was a partial ureteral stricture starting at 4 cm proximal to the level of the orifice and extending for a distance of 1 to 2 cm. There was moderate degree of proximal left hydroureteronephrosis. The stricture yielded easily to balloon dilation with no waisting. DESCRIPTION OF PROCEDURE: After successful general anesthesia, the patient was placed in the lithotomy position and was prepped and draped for a cystoscopy. Cystoscopy was performed. The bladder was inspected and the findings in the left trigone and around the left orifice were noted. A flexible tip guidewire was then introduced into the left orifice and passed without difficulty into the area of the renal pelvis. A size 5-Tunisian open- ended catheter was then fed on top of the guidewire and positioned in the distal ureter. The guidewire was removed and retrograde pyelography was performed. The guidewire was then reinserted inside the left orifice and positioned in the area of the renal pelvis. A size 6.5 semi-rigid ureteroscope was then introduced under direct vision into the left orifice. The distal aspect of the stricture was identified. The ureteroscope was not forced through the area of the stricture to avoid causing any ureteral injury. The exact position of the distal stricture was then noted on the x-ray under fluoroscopy. The open ended catheter was then fed on top of the guidewire and passed until the tip of the catheter was at the level of the stricture noted on the fluoroscopy. It measured 4 cm from the level of the orifice. The open-ended catheter was then removed keeping the guidewire in place. An 18- Tunisian balloon dilator was then fed on top of the guidewire and the balloon was positioned above and below the stricture. The balloon was then gently inflated and there was minimal initial waisting over a distance between 1 to 2 cm at the site of the stricture. The waisting was brief and the stricture easily yielded to the balloon dilation. The balloon was kept dilated for 3 to 4 minutes, and was then deflated and removed keeping the guidewire in place. A black silicone stent, 24 cm long, 8-5 Tunisian was then fed on top of the guidewire and positioned with the proximal end coiling in the renal pelvis and the distal end coiling inside the bladder. There was good drainage of contrast from the kidney and no extravasation. The patient tolerated the procedure well and left the operating room in good condition. The plan is to keep the stent in place for 6 to 8 weeks. If the stricture recurs, after this second balloon dilation, the patient will likely require a surgery with ureteral reimplantation. [id number]/[facility] #: [id number] TALAT
== END | disposition home or self-care (01) ==
LOC: OR 11:57
PROVIDERS: ATTEND Urology
DX: N13.1 Hydronephrosis with ureteral stricture, not elsewhere classified (principal); R73.03 Prediabetes; F41.8 Other specified anxiety disorders; E66.01 Morbid (severe) obesity due to excess calories; K21.9 Gastro-esophageal reflux disease without esophagitis
CPT/HCPCS: 74420; C1876; J0696; J1100; J1885; J2250; J2405; J2704; J3010

== ENCOUNTER 2020-04-17 05:56 | Inpatient (IN) ==
[2020-04-17] MEDS ORDERED: Lactated Ringers 1000 ml BAG 1,000 ML IV SCH (06:00)
[2020-04-17] MEDS ORDERED: Famotidine IV 10 MG/ML 2 ml VIAL (20 mg) IV ONE (06:00)
[2020-04-17] MEDS ORDERED: Buffered Lidocaine 1% SYRIN 1 ml INTRADERM ONE ×3 (06:00→07:41)
[2020-04-17] MEDS ORDERED: Heparin 5000 UNITS/ML 1 mL VIAL ONE (06:29)
[2020-04-17] MEDS ORDERED: ceFAZolin 1 GM ADVAN 1 GM ADDV.VIAL IVPB ONE (06:30)
[2020-04-17] MEDS ORDERED: Famotidine IV 10 MG/ML 2 ml VIAL (20 mg) ONE (06:30)
[2020-04-17] MEDS ORDERED: ceFAZolin 2 GM PREMIX 2 GM/50 ML BAG ONE (06:30)
[2020-04-17] MEDS ORDERED: Bupivacaine 0.25% EPI 200,000 30 ML SDV ONE (07:08)
[2020-04-17] MEDS ORDERED: Propofol 10 MG/ML 20 ML BTL ONE (07:17)
[2020-04-17] MEDS ORDERED: Lidocaine 2% PF 5 ML VIAL ONE (07:17)
[2020-04-17] MEDS ORDERED: Dexamethasone IV 4 MG/ML VIAL 1 ml VIAL ONE (07:17)
[2020-04-17] MEDS ORDERED: Ondansetron 4 mg VIAL 2 MG/ML 2 ml VIAL ONE ×2 (07:17→10:45)
[2020-04-17] MEDS ORDERED: Rocuronium 50 mg VIAL 10 mg/ml 5 ml VIAL (50 mg) ONE ×2 (07:18→08:23)
[2020-04-17] MEDS ORDERED: fentaNYL 250 mcg/5 ml 50 MCG/ML 5 ml VIAL (250 MCG) ONE (07:18)
[2020-04-17] MEDS ORDERED: Midazolam 5 mg/5 ml VIAL 1 mg/ml 5 ml VIAL (5 mg) ONE (07:18)
[2020-04-17] MEDS ORDERED: Ketamine HCL 50 mg/ml 10 ml VIAL (500 MG) ONE (07:18)
[2020-04-17] MEDS ORDERED: EPHEDrine (Pressors) 50 MG/ML VIAL ONE (08:36)
[2020-04-17] MEDS ORDERED: Ondansetron 4 mg VIAL 2 MG/ML 2 ml VIAL IV PRN (09:04)
[2020-04-17] MEDS ORDERED: Naloxone 0.4 mg VIAL 0.4 mg/ml 1 ml VIAL IV PRN (09:04)
[2020-04-17] MEDS ORDERED: DiMENhydriNATE IV 50 mg/ml 1 ml VIAL IV PUSH PRN (09:04)
[2020-04-17] MEDS ORDERED: Sugammadex 500 MG/5 ML 5 ml VIAL IV PUSH ONE (10:03)
[2020-04-17] MEDS ORDERED: fentaNYL 100 mcg/2 ml 50 MCG/ML VIAL ONE (10:37)
[2020-04-17] MEDS ORDERED: DiMENhydriNATE IV 50 mg/ml 1 ml VIAL ONE (10:37)
[2020-04-17] MEDS ORDERED: HYDROmorphone 1 MG/1 ML SYRINGE IV SLOW PU PRN (10:51)
[2020-04-17] MEDS ORDERED: HYDROcodone/ACET. 7.5/325 LIQ 15 ML UDC PO PRN (10:51)
[2020-04-17] MEDS: fentaNYL 100 mcg/2 ml 50 MCG/ML VIAL IV PRN ×2 (10:52→11:28)
[2020-04-17] MEDS ORDERED: Prochlorperazine 5 mg/ml 2 ml VIAL (10 mg) ONE (11:44)
[2020-04-17] MEDS ORDERED: Prochlorperazine 5 mg/ml 2 ml VIAL (10 mg) IV PRN (12:06)
[2020-04-17] MEDS: Lactated Ringers 1000 ml BAG 1,000 ML IV SCH ×2 (12:41→19:18)
[2020-04-17] MEDS: HYDROmorphone 0.5 MG/0.5 ML SYRINGE IV SLOW PU PRN ×2 (13:17→19:08)
[2020-04-17] MEDS: Ondansetron 4 mg VIAL 2 MG/ML 2 ml VIAL IV PRN (19:08)
[2020-04-17] MEDS ORDERED: Famotidine IV 10 MG/ML 2 ml VIAL (20 mg) IV SLOW PU SCH (21:00)
[2020-04-17] MEDS: Heparin 5000 UNITS/ML 1 mL VIAL SUBCUT SCH (22:17)
[2020-04-18] MEDS: Lactated Ringers 1000 ml BAG 1,000 ML IV SCH ×2 (01:53→08:35)
[2020-04-18] MEDS: Ondansetron 4 mg VIAL 2 MG/ML 2 ml VIAL IV PRN ×3 (04:16→16:48)
[2020-04-18] MEDS: Heparin 5000 UNITS/ML 1 mL VIAL SUBCUT SCH ×3 (05:53→22:45)
[2020-04-18] MEDS: Potassium Citrate 10 meq T(NF) PO SCH ×2 (10:08→22:34)
[2020-04-18] MEDS: D5W 1/2 NS KCl 20 meq 1000 ml 1,000 ML IV SCH ×2 (13:44→22:45)
[2020-04-19] MEDS: Heparin 5000 UNITS/ML 1 mL VIAL SUBCUT SCH (06:16)
[2020-04-19] MEDS: D5W 1/2 NS KCl 20 meq 1000 ml 1,000 ML IV SCH (07:09)
[2020-04-19] MEDS: Potassium Citrate 10 meq T(NF) PO SCH (09:48)
[2020-04-19 11:28] VITALS: BP 131/70
== END 2020-04-19 13:50 | disposition home or self-care (01) | DRG 621 ==
LOC: AA 05:56 → SSU 12:32
PROVIDERS: ADMIT Surgery; ATTEND Surgery